=== PATIENT | female | born 1990 | race Caucasian/White ===

== ENCOUNTER 2024-11-25 14:27 | Outpatient (AMB) | payer MEDICAID, SELFPAY ==
[2024-11-25 14:36] VITALS: BP 135/86; PULSE 95; RESP 18; TEMP 36.7; O2SAT 98; BMI 31.3
--- NOTE | 2024-11-25 14:36 | AMB.GYNCLNOT ---
Vital Signs 11/25/24 14:36 Height 1.57 m Height Method Stated Weight 77.621 kg Weight Measurement Method Standing Scale BMI 31.3 BP 135/86 H Blood Pressure Source Automatic Cuff Blood Pressure Location Left Upper Arm Position Sitting Respiration 18 Pulse 95 Pulse Source Monitor Temp 98.1 F Temp Source Temporal Artery Scan Pulse Oximetry (%) 98 Oxygen Delivery Method Room Air Allergies/Home Meds Allergies & Medications Allergies No Known Allergies Allergy (Unverified 11/25/24 14:37) Medication Reconciliation vitamins with calcium no.72-iron 29 mg-folic acid 1 mg tablet ( Plus) 1 tab PO QDAY 90 days #90 tabs 11/25/24 [Rx] Intake Visit Data Collection New Patient or Established: Established Patient (seen at [facility] within 3 years) Reason for Visit:: test Do You Feel Safe at Home: Yes Authorities Contacted: N/A PCP or OBGYN visit in last 3 months: Yes Smoking Status Smoking Status: Never smoker 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 No complaints of UTI. No complaints of vaginitis. Questionnaires Covid-19 Vaccine Questionnaire Has patient been vacinated for Covid-19 Have you been vacinated for Covid-19: Yes PHQ-9 PHQ-2 Over the last 2 weeks, how often have you been bothered by any of the following problems? 1. Little interest or pleasure in doing things: not at all 2. Feeling down, depressed, or hopeless: not at all Total score: 0 Depression screen completed yes Social History Living Situation History Marital Status: Life Partner Lives With: Family Housing: House Tobacco History Smoking Status: Never smoker Alcohol History Alcohol Intake: Never Domestic Abuse History Do You Feel Safe at Home: Yes Past Medical History Past Medical History Have you ever been diagnosed with any of the following: Neurological Problems Seizures: No Cardiology Problems Congestive Heart Failure: No Congenital Heart Disease: No Respiratory Problems Chronic Obstructive Pulmonary Disease (COPD): No Asthma: No Genital/Urinary Problems Renal Disease: No Musculoskeletal Problems Scoliosis: Yes (mild per pt) Endocrine Problems Diabetes Mellitus Type 1: No Diabetes Mellitus Type 2: No Blood Problems Anemia: No Psychologic Problems Depression: No Anxiety: No Depression: No Other Problems Hospitalization: Yes ( x2) Blood Transfusions: No Anesthesia Reactions: No History of Present Illness HPI Narrative This is a 34-year-old 4 para 3 that comes today with complaints of amenorrhea Menses are usually every month x 5 days. Flow is normal. lmp 10/11/24. patient and partner have been activeley trying for a , not using contraception. + test 11/24/24. Patient is very happy about a positive test. She denies any bleeding at this time however she is having some low pelvic cramping. Denies social habits. Denies surgeries. Denies chronic illness. She has history of 3 vaginal deliveries that were normal and uncomplicated. She denies any early complaints. early . EDC 08/12/25 Review of Systems Review of Systems Systems Reviewed: All systems reviewed, normal except as documented Exam General Limitations: no limitations General Appearance: alert, in no apparent distress, comfortable, cooperative, healthy appearing, well developed and well groomed Chest Chest inspection: Present normal inspection and symmetric chest wall rise Resp Respiratory exam: Present normal lung sounds bilaterally Card Cardiovascular exam: Present regular rate, normal rhythm and normal heart sounds Abdominal Abdominal exam: Present soft and normal bowel sounds Psych Psychiatric exam: Present normal affect and normal mood Assessment & Plan Diagnosis / Problem List (1) Encounter for test, result positive: Status: Acute Plan Gave prescription for vitamins. I discussed starting vitamin D and calcium daily. Discussed diet. Walk 40 minutes a day. Increase fluids. Comfort measures for nausea and vomiting. Reviewed SAB and ER precautions. Patient gave order for OB panel. Return in 4 weeks for OB initial. Additional Plan Follow Up: 4 Weeks (rtc 4 week obc) Office Procedures OB Clinic LOC & Office Proc's Nursing/Assessment Patient Status: Established Patient OB Clinic Nursing Assessment: Medication Reconciliation, Update PMH in EMR and Vital Signs OB Clinic Coordination of Care: Complex Care and Chronic Disease 1-5, Consent,records obtained, informed consent, Education Simp Pt/Fam, Lab and Imaging orders and Staff clarify orders Special Needs: Heart tones Established Patient Charge Established Patient Point Assignment: 130 Established Patient Point Charge: EP Level 4 (120-155) In Clinic Bedside tests Bedside HCG: Yes
== END 2024-11-25 14:54 | disposition home or self-care (01) ==
LOC: HODSOBC 14:27
PROVIDERS: Supervising Provider Advanced Practice Midwife; Visit Provider Advanced Practice Midwife
DX: Z32.01 Encounter for pregnancy test, result positive (principal)
CPT/HCPCS: 81025; 99213; 99214; G0463

== ENCOUNTER 2024-12-22 14:26 | Outpatient (AMB) | payer MEDICAID, SELFPAY ==
[2024-12-22 14:49] VITALS: BP 115/76; PULSE 93; RESP 18; TEMP 36.2; O2SAT 97; BMI 32.0
--- NOTE | 2024-12-22 14:49 | AMB.OBVISIT ---
Vital Signs 12/22/24 14:49 Height 1.57 m Height Method Stated Weight 78.925 kg Weight Measurement Method Standing Scale BMI 32.0 BP 115/76 Blood Pressure Source Automatic Cuff Blood Pressure Location Left Upper Arm Position Sitting Respiration 18 Pulse 93 Pulse Source Monitor Temp 97.2 F Temp Source Oral Pulse Oximetry (%) 97 Oxygen Delivery Method Room Air Allergies/Home Meds Allergies & Medications Allergies No Known Allergies Allergy (Verified 12/22/24 14:50) Medication Reconciliation vitamins with calcium no.72-iron 29 mg-folic acid 1 mg tablet ( Plus) 1 tab PO QDAY 90 days #90 tabs 11/25/24 [Rx Confirmed 12/22/24] vitamin-ferrous fumarate 28 mg iron-folic acid 800 mcg tablet ( Vitamins with Minerals) 1 tab PO QDAY 30 days #60 tabs 12/22/24 [Rx] Intake Visit Data Collection New Patient or Established: Established Patient (seen at [facility] within 3 years) Reason for Visit:: obc Seen by Clinical Staff ONLY (RN/MA): No 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 1. Little interest or pleasure in doing things: not at all 2. Feeling down, depressed, or hopeless: not at all Total score: 0 PHQ-9 3. Trouble falling or staying asleep, or sleeping too much: Not at all 4. Feeling tired or having little energy: Not at all 5. Poor appetite or overeating: Not at all 6. Feeling bad about yourself - or that you are a failure or have let yourself or your family down: Not at all 7. Trouble concentrating on things, such as reading the newspaper or watching television: Not at all 8. Moving or speaking so slowly that other people could have noticed? - Or the opposite - being so fidgety or restless that you have been moving around a lot more than usual: not at all 9. Thoughts that you would be better off or of hurting yourself in some way: Not at all Total score: 0 If you checked off any problems, how difficult have these problems made it for you to do your work, take care of things at home, or get along with other people?: not difficult at all Source: Developed by Drs. Toño Loyd, Maria Antonia Rea, Perez Vázquez and colleagues, with an educational evens from [employer]. 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 no SAB complaints. compliance with PNV, OB panel drawn, results pending. change PNV to another brand, insurance not covering. schedule NT sacn. NIPT nv, + FHT on sono BRITT Calculator Estimated Delivery Date Method Current WG Current Estimate 08/07/25 LMP (Certain) 7w 3d Office Procedures OB Clinic LOC & Office Proc's Nursing/Assessment Patient Status: Established Patient OB Clinic Nursing Assessment: Medication Reconciliation, Update PMH in EMR and Vital Signs OB Clinic Coordination of Care: Consent,records obtained, informed consent, Education Simp Pt/Fam, Lab and Imaging orders and Staff clarify orders Special Needs: Heart tones Established Patient Charge Established Patient Point Assignment: 105 Established Patient Point Charge: EP Level 3 (80-115) Assessment & Plan Diagnosis / Problem List (1) Advanced maternal age (AMA) in : Status: Acute (2) Encounter for supervision of normal in multigravida in first trimester: Status: Acute Plan sab precaution, labs pending, change brand of PNV, schedule NT scan. discuss diet and weight, RTC 4 week, NIPT NV Additional Plan Follow Up: 4 Weeks (obc)
== END 2024-12-22 15:42 | disposition home or self-care (01) ==
LOC: HODSOBC 14:26
PROVIDERS: PCP Advanced Practice Midwife; Referring Provider Advanced Practice Midwife; Supervising Provider Advanced Practice Midwife; Visit Provider Advanced Practice Midwife
DX: O09.521 Supervision of elderly multigravida, first trimester (principal); Z3A.01 Less than 8 weeks gestation of pregnancy
CPT/HCPCS: 81001; 99213; G0463

== ENCOUNTER 2025-01-13 15:30 | Outpatient (AMB) | payer MEDICAID, SELFPAY ==
[2025-01-13 16:01] VITALS: BP 121/77; PULSE 92; RESP 18; TEMP 36.2; O2SAT 98; BMI 32.2
--- NOTE | 2025-01-13 16:01 | OBCLNT_ITS ---
Vital Signs 01/13/25 16:01 Height 1.57 m Height Method Stated Weight 79.492 kg Weight Measurement Method Standing Scale BMI 32.2 BP 121/77 Blood Pressure Source Automatic Cuff Blood Pressure Location Left Upper Arm Position Sitting Respiration 18 Pulse 92 Pulse Source Monitor Temp 97.2 F Temp Source Oral Pulse Oximetry (%) 98 Oxygen Delivery Method Room Air Allergies/Home Meds Allergies & Medications Allergies No Known Allergies Allergy (Verified 01/13/25 16:02) Medication Reconciliation vitamins with calcium no.72-iron 29 mg-folic acid 1 mg tablet ( Plus) 1 tab PO QDAY 90 days #90 tabs 11/25/24 [Rx Confirmed 01/13/25] vitamin-ferrous fumarate 28 mg iron-folic acid 800 mcg tablet ( Vitamins with Minerals) 1 tab PO QDAY 30 days #60 tabs 12/22/24 [Rx Confirmed 01/13/25] Intake Visit Data Collection New Patient or Established: Established Patient (seen at [facility] within 3 years) Reason for Visit:: OBC Cray Fishing Hand Required: No Do You Feel Safe at Home: Yes Authorities Contacted: N/A PCP or OBGYN visit in last 3 months: Yes Hx Now: Yes Are you currently on any form of Control: No Pain Present Currently: No Pain Scale Used: Fishman-Naidu/Numerical Pain scale:: 0 Smoking Status Smoking Status: Never smoker Questionnaires Covid-19 Vaccine Questionnaire Has patient been vacinated for Covid-19 Have you been vacinated for Covid-19: Yes PHQ-9 PHQ-2 Over the last 2 weeks, how often have you been bothered by any of the following problems? 1. Little interest or pleasure in doing things: not at all 2. Feeling down, depressed, or hopeless: not at all Total score: 0 PHQ-9 3. Trouble falling or staying asleep, or sleeping too much: Not at all 4. Feeling tired or having little energy: Not at all 5. Poor appetite or overeating: Not at all 6. Feeling bad about yourself - or that you are a failure or have let yourself or your family down: Not at all 7. Trouble concentrating on things, such as reading the newspaper or watching television: Not at all 8. Moving or speaking so slowly that other people could have noticed? - Or the opposite - being so fidgety or restless that you have been moving around a lot more than usual: not at all 9. Thoughts that you would be better off or of hurting yourself in some way: Not at all Total score: 0 If you checked off any problems, how difficult have these problems made it for you to do your work, take care of things at home, or get along with other people?: not difficult at all Source: Developed by Drs. Toño Loyd, Maria Antonia Rea, Perez Vázquez and colleagues, with an educational evens from [employer]. 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 no SAB complaints. compliance with PNV, OB panel drawn, results pending. change PNV to another brand, insurance not covering. schedule NT sacn. NIPT nv, + FHT on sono 01/13/25 -?-?-?-?-?-?-?-?-?-?-?-?- 10w 4d 79.492 kg 121/77 absent unknown 12 145 absent no ob complaints. no sab complaints, mfm sched 02/03. contin PNV NIPT/carrier screen, . keep mfm appointment 02/03/25. sab precaution. hydrate. rtc 4 week BRITT Calculator Estimated Delivery Date Method Current WG Current Estimate 08/07/25 LMP (Certain) 10w 4d Notes Visit Date: 01/13/25 Last Updated by: Veda Quigley, YULISSA 34 yo lmp 10/31/24. EDC 08/07/25. O+,abs-, RPR::NR, rub imm, hbsag-,hiv-, GC/CT-, Office Procedures OB Clinic LOC & Office Proc's Nursing/Assessment Patient Status: Established Patient OB Clinic Nursing Assessment: Medication Reconciliation, Update PMH in EMR and Vital Signs OB Clinic Coordination of Care: Education Complex Pt/Fam, Consent,records obtained, informed consent, Lab and Imaging orders and Staff clarify orders Special Needs: Heart tones Established Patient Charge Established Patient Point Assignment: 110 Established Patient Point Charge: EP Level 3 (80-115) Assessment & Plan Diagnosis / Problem List (1) Advanced maternal age (AMA) in : Status: Acute (2) Encounter for supervision of normal in multigravida in first trimester: Status: Acute Plan keep mfm appointment for 02/03. continue PNV, sab precaution. NIPT and carrier screen today. rtc 4 wk obc Additional Plan Follow Up: 4 Weeks (obc)
== END 2025-01-13 16:44 | disposition home or self-care (01) ==
LOC: HODSOBC 15:30
PROVIDERS: PCP Advanced Practice Midwife; Referring Provider Advanced Practice Midwife; Supervising Provider Advanced Practice Midwife; Visit Provider Advanced Practice Midwife
DX: O09.521 Supervision of elderly multigravida, first trimester (principal); Z3A.10 10 weeks gestation of pregnancy
CPT/HCPCS: 99213; G0463

== ENCOUNTER 2025-03-01 13:13 | Outpatient (AMB) | payer MEDICAID, SELFPAY ==
[2025-03-01 13:18] VITALS: BP 117/70; PULSE 96; RESP 17; TEMP 36.7; O2SAT 98; BMI 33.2
--- NOTE | 2025-03-01 13:18 | OBCLNT_ITS ---
Vital Signs 03/01/25 13:18 Height 1.57 m Height Method Stated Weight 81.817 kg Weight Measurement Method Standing Scale BMI 33.2 BP 117/70 Blood Pressure Source Automatic Cuff Blood Pressure Location Right Upper Arm Position Sitting Respiration 17 Pulse 96 Pulse Source Monitor Temp 98.1 F Temp Source Temporal Artery Scan Pulse Oximetry (%) 98 Oxygen Delivery Method Room Air Allergies/Home Meds Allergies & Medications Allergies No Known Allergies Allergy (Verified 03/01/25 13:20) Medication Reconciliation vitamins with calcium no.72-iron 29 mg-folic acid 1 mg tablet ( Plus) 1 tab PO QDAY 90 days #90 tabs 11/25/24 [Rx Confirmed 03/01/25] vitamin-ferrous fumarate 28 mg iron-folic acid 800 mcg tablet ( Vitamins with Minerals) 1 tab PO QDAY 30 days #60 tabs 12/22/24 [Rx Confirmed 03/01/25] Intake Visit Data Collection New Patient or Established: Established Patient (seen at [facility] within 3 years) Reason for Visit:: OBC Seen by Clinical Staff ONLY (RN/MA): No Night Clerk Auditor Required: No Do You Feel Safe at Home: Yes Authorities Contacted: N/A PCP or OBGYN visit in last 3 months: Yes Date of Last PCP or OBGYN visit: 01/13/25 Hx Now: Yes Are you currently on any form of Control: No Pain Present Currently: No Pain Scale Used: Fishman-Naidu/Numerical Pain scale:: 0 Smoking Status Smoking Status: Never smoker Questionnaires Covid-19 Vaccine Questionnaire Has patient been vacinated for Covid-19 Have you been vacinated for Covid-19: No PHQ-9 PHQ-2 Over the last 2 weeks, how often have you been bothered by any of the following problems? 1. Little interest or pleasure in doing things: not at all 2. Feeling down, depressed, or hopeless: not at all Total score: 0 PHQ-9 3. Trouble falling or staying asleep, or sleeping too much: Not at all 4. Feeling tired or having little energy: Not at all 5. Poor appetite or overeating: Not at all 6. Feeling bad about yourself - or that you are a failure or have let yourself or your family down: Not at all 7. Trouble concentrating on things, such as reading the newspaper or watching television: Not at all 8. Moving or speaking so slowly that other people could have noticed? - Or the opposite - being so fidgety or restless that you have been moving around a lot more than usual: not at all 9. Thoughts that you would be better off or of hurting yourself in some way: Not at all Total score: 0 If you checked off any problems, how difficult have these problems made it for you to do your work, take care of things at home, or get along with other people?: not difficult at all Source: Developed by Drs. Toño Loyd, Maria Antonia Rea, Perez Vázquez and colleagues, with an educational evens from [employer]. 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 no SAB complaints. compliance with PNV, OB panel drawn, results pending. change PNV to another brand, insurance not covering. schedule NT sacn. NIPT nv, + FHT on sono 01/13/25 -?-?-?-?-?-?-?-?-?-?-?-?- 10w 4d 79.492 kg 121/77 absent unknown 12 145 absent no ob complaints. no sab complaints, mfm sched 02/03. contin PNV NIPT/carrier screen, . keep mfm appointment 02/03/25. sab precaution. hydrate. rtc 4 week 03/01/25 -?-?-?--?-?-?-?-?-?-?-?-?- 17w 2d 81.817 kg 117/70 absent unknown 17 145 decreased No SAB complaints. Reports movement. Denies leaking or bleeding. Patient has a follow-up maternal- medicine appointment for March. No SAB complaints. Reports movement. Denies leaking or bleeding. Patient has a follow-up maternal- medicine appointment for March. MFM 03/01 Keep appointment in March for follow-up MFM. aFP today. Discussed labor and SAB precautions. Increase fluids. Continue prenatals return in 4 weeks OB check BRITT Calculator Estimated Delivery Date Method Current WG Current Estimate 08/07/25 LMP (Certain) 17w 2d Notes Visit Date: 03/01/25 Last Updated by: Veda Quigley CNM NIPT- Visit Date: 01/13/25 Last Updated by: Veda Quigley CNM 34 yo lmp 10/31/24. EDC 08/07/25. O+,abs-, RPR::NR, rub imm, hbsag-,hiv-, GC/CT-, Office Procedures OB Clinic LOC & Office Proc's Nursing/Assessment Patient Status: Established Patient OB Clinic Nursing Assessment: Medication Reconciliation, Update PMH in EMR and Vital Signs OB Clinic Coordination of Care: Complex Care and Chronic Disease 1-5, Consent,records obtained, informed consent, Education Simp Pt/Fam and Staff clarify orders Special Needs: Heart tones Established Patient Charge Established Patient Point Assignment: 115 Established Patient Point Charge: EP Level 3 (80-115) Assessment & Plan Diagnosis / Problem List (1) Normal in multigravida in second trimester: Status: Acute (2) Advanced maternal age (AMA) in : Status: Acute Plan aFP today. Discussed SAB precautions. Increase fluids. Continue prenatals. Patient has a follow-up MFM in March. Additional Plan Follow Up: 4 Weeks (obc)
== END 2025-03-01 13:53 | disposition home or self-care (01) ==
LOC: HODSOBC 13:13
PROVIDERS: PCP Advanced Practice Midwife; Referring Provider Advanced Practice Midwife; Supervising Provider Advanced Practice Midwife; Visit Provider Advanced Practice Midwife
DX: O09.522 Supervision of elderly multigravida, second trimester (principal); Z3A.17 17 weeks gestation of pregnancy
CPT/HCPCS: 99213; G0463

== ENCOUNTER 2025-03-29 15:44 | Outpatient (AMB) | payer MEDICAID, SELFPAY ==
--- NOTE | 2025-03-29 16:07 | OBCLNT_ITS ---
Vital Signs 03/29/25 16:08 Height 1.57 m Height Method Measured Weight 83.971 kg Weight Measurement Method Standing Scale BMI 34.0 BP 116/73 Blood Pressure Source Automatic Cuff Blood Pressure Location Right Upper Arm Position Sitting Respiration 17 Pulse 85 Pulse Source Monitor Temp 97.1 F Temp Source Temporal Artery Scan Pulse Oximetry (%) 98 Oxygen Delivery Method Room Air Allergies/Home Meds Allergies & Medications Allergies No Known Allergies Allergy (Verified 03/29/25 16:08) Medication Reconciliation vitamins with calcium no.72-iron 29 mg-folic acid 1 mg tablet ( Plus) 1 tab PO QDAY 90 days #90 tabs 11/25/24 [Rx Confirmed 03/29/25] vitamin-ferrous fumarate 28 mg iron-folic acid 800 mcg tablet ( Vitamins with Minerals) 1 tab PO QDAY 30 days #60 tabs 12/22/24 [Rx Confirmed 03/29/25] aspirin 81 mg tablet,delayed release (Adult Aspirin Regimen) 81 mg PO QDAY #60 tabs 03/29/25 [Rx] Intake Visit Data Collection New Patient or Established: Established Patient (seen at [facility] within 3 years) Reason for Visit:: C Consent obtained for Telemed Visit: No Seen by Clinical Staff ONLY (RN/MA): No Bathhouse Attendant Required: No Do You Feel Safe at Home: Yes Authorities Contacted: N/A PCP or OBGYN visit in last 3 months: Yes Date of Last PCP or OBGYN visit: 03/01/25 Hx Now: Yes Are you currently on any form of Control: No Pain Present Currently: No Pain Scale Used: Fishman-Naidu/Numerical Pain scale:: 0 Smoking Status Smoking Status: Never smoker Questionnaires Covid-19 Vaccine Questionnaire Has patient been vacinated for Covid-19 Have you been vacinated for Covid-19: No PHQ-9 PHQ-2 Over the last 2 weeks, how often have you been bothered by any of the following problems? 1. Little interest or pleasure in doing things: not at all PHQ-9 8. Moving or speaking so slowly that other people could have noticed? - Or the opposite - being so fidgety or restless that you have been moving around a lot more than usual: not at all Source: Developed by Drs. Toño Loyd, Maria Antonia Rea, Perez Vázquez and colleagues, with an educational evens from [employer]. 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 no SAB complaints. c ompliance with PNV, OB panel drawn, results pending. change PNV to another brand, insurance not covering. schedule NT sacn. NIPT nv, + FHT on sono 01/13/25 -?-?-?-?-?-?-?-?-?-?-?-?- 10w 4d 79.492 kg 121/77 absent unknown 12 145 absent no ob complaints. no sab complaints, [facility] sched 02/03. contin PNV NIPT/carrier screen, . keep m appoi ntment 02/03/25. sab precaution. hydrate. rtc 4 week 03/01/25 -?-?-?-?-?-?-?-?-?-?-?-?- 17w 2d 81.817 kg 117/70 absent unknown 17 145 decreased No SAB complaints. Reports movement. Denies leaking or bleeding. Patient has a follow-up maternal- medicine appointment for March. No SAB complaints. Reports movement. Denies leaking or bleeding. Patient has a follow-up maternal- medicine appointment for March. MFM 03/01 Keep appointment in March for follow-up MFM. aFP today. Discussed labor and SAB precautions. Increase fluids. Continue prenatals return in 4 weeks OB check 03/29/25 -?-?-?-?-?-?-?-?-?-?-?-?- 21w 2d 83.971 kg 116/73 absent unknown 21 145 active No SAB complaints. Positive movement. MFM appointment March 31. Denies leaking, bleeding, contractions. Complains of ligament pain Start low-dose baby aspirin 1 daily. Keep appointment March 31 with MFM. Discussed labor precautions. Increase fluids. Continue prenatals. Return in 4 weeks OB check. Comfort measures for ligament pain BRITT Calculator Estimated Delivery Date Method Current WG Current Estimate 08/07/25 LMP (Certain) 21w 2d Other Estimates 08/07/25 Ultrasound #1 21w 2d Notes Visit Date: 03/29/25 Last Updated by: Veda Quigley CNM 34 yo . LMP 10/31/24, edc: 08/07/25. O+,abs-, rpr;;nr, rub imm, hbsag- , hiv-,HC-, GC/CT-. AFP/NIPT -, carrier screen- Visit Date: 03/01/25 Last Updated by: Veda Quigley CNM NIPT- Visit Date: 01/13/25 Last Updated by: Veda Quigley CNM 34 yo lmp 10/31/24. EDC 08/07/25. O+,abs-, RPR::NR, rub imm, hbsag-,hiv-, GC/CT-, / Office Procedures OB Clinic LOC & Office Proc's Nursing/Assessment Patient Status: Established Patient OB Clinic Nursing Assessment: Medication Reconciliation, Update PMH in EMR and Vital Signs OB Clinic Coordination of Care: Complex Care and Chronic Disease 1-5, Consent,records obtained, informed consent, Education Simp Pt/Fam, 4+ Authorizations needed, Lab and Imaging orders and Results/Orders obtained Special Needs: Heart tones Established Patient Charge Established Patient Point Assignment: 150 Established Patient Point Charge: EP Level 4 (120-155) Assessment & Plan Diagnosis / Problem List (1) Normal in multigravida in second trimester: Status: Acute (2) Advanced maternal age (AMA) in : Status: Acute Plan Discussed negative AFP. labor precautions reviewed. Increase fluids. Keep MFM appointment on the . Turn in 4 weeks for OB check and third trimester labs Additional Plan Follow Up: 4 Weeks (obc)
[2025-03-29 16:08] VITALS: BP 116/73; PULSE 85; RESP 17; TEMP 36.2; O2SAT 98; BMI 34.0
== END 2025-03-29 16:21 | disposition home or self-care (01) ==
LOC: HODSOBC 15:44
PROVIDERS: Supervising Provider Advanced Practice Midwife; Visit Provider Advanced Practice Midwife
DX: O09.522 Supervision of elderly multigravida, second trimester (principal); Z3A.21 21 weeks gestation of pregnancy
CPT/HCPCS: 99214; G0463

== ENCOUNTER 2025-04-26 15:12 | Outpatient (AMB) | payer MEDICAID, SELFPAY ==
[2025-04-26 15:59] VITALS: BP 106/72; PULSE 99; RESP 16; TEMP 36.2; O2SAT 98; BMI 35.0
--- NOTE | 2025-04-26 15:59 | OBCLNT_ITS ---
Vital Signs 04/26/25 15:59 Height 1.57 m Height Method Stated Weight 86.409 kg Weight Measurement Method Standing Scale BMI 35.0 BP 106/72 Blood Pressure Source Automatic Cuff Blood Pressure Location Left Upper Arm Position Sitting Respiration 16 Pulse 99 Pulse Source Monitor Temp 97.2 F Temp Source Oral Pulse Oximetry (%) 98 Oxygen Delivery Method Room Air Allergies/Home Meds Allergies & Medications Allergies No Known Allergies Allergy (Verified 04/26/25 16:00) Medication Reconciliation vitamins with calcium no.72-iron 29 mg-folic acid 1 mg tablet ( Plus) 1 tab PO QDAY 90 days #90 tabs 11/25/24 [Rx Confirmed 04/26/25] vitamin-ferrous fumarate 28 mg iron-folic acid 800 mcg tablet ( Vitamins with Minerals) 1 tab PO QDAY 30 days #60 tabs 12/22/24 [Rx Confirmed 04/26/25] aspirin 81 mg tablet,delayed release (Adult Aspirin Regimen) 81 mg PO QDAY #60 tabs 03/29/25 [Rx Confirmed 04/26/25] Intake Visit Data Collection New Patient or Established: Established Patient (seen at [facility] within 3 years) Reason for Visit:: OBC Seen by Clinical Staff ONLY (RN/MA): No Insurance Salesperson Required: No Do You Feel Safe at Home: Yes Authorities Contacted: N/A PCP or OBGYN visit in last 3 months: Yes Date of Last PCP or OBGYN visit: 03/29/25 Hx Now: Yes Are you currently on any form of Control: No Pain Present Currently: No Pain Scale Used: Fishman-Naidu/Numerical Pain scale:: 0 Smoking Status Smoking Status: Never smoker Questionnaires Covid-19 Vaccine Questionnaire Has patient been vacinated for Covid-19 Have you been vacinated for Covid-19: Yes PHQ-9 PHQ-2 Over the last 2 weeks, how often have you been bothered by any of the following problems? 1. Little interest or pleasure in doing things: not at all 2. Feeling down, depressed, or hopeless: not at all Total score: 0 PHQ-9 3. Trouble falling or staying asleep, or sleeping too much: Not at all 4. Feeling tired or having little energy: Not at all 5. Poor appetite or overeating: Not at all 8. Moving or speaking so slowly that other people could have noticed? - Or the opposite - being so fidgety or restless that you have been moving around a lot more than usual: not at all Source: Developed by Drs. Toño Loyd, Maria Antonia Rea, Perez Vázquez and colleagues, with an educational evens from [employer]. 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 no SAB complaints. compliance with PNV, OB panel drawn, results pending. change PNV to another brand, insurance not covering. schedule NT sacn. NIPT nv, + FHT on sono 01/13/25 -?-?-?-?-?-?-?-?-?-?-?-?- 10w 4d 79.492 kg 121/77 absent unknown 12 145 absent no ob complaints. no sab complaints, mfm sched 02/03. contin PNV NIPT/carrier screen, . keep mfm appointment 02/03/25. sab precaution. hydrate. rtc 4 week 03/01/25 -?-?-?-?-?-?-?-?-?-?-?-?- 17w 2d 81.817 kg 117/70 absent unknown 17 145 decreased No SAB complaints. Reports movement. Denies leaking or bleeding. Patient has a follow-up maternal- medicine appointment for March. No SAB complaints. Reports movement. Denies leaking or bleeding. Patient has a follow-up maternal- medicine appointment for March. MFM 03/01 Keep appointment in March for follow-up MFM. aFP today. Discussed labor and SAB precautions. Increase fluids. Continue prenatals return in 4 weeks OB check 03/29/25 -?-?-?-?-?-?-?-?-?-?-?-?- w 2d 83.971 kg 116/73 absent unknown 21 145 active No SAB complaints. Positive movement. MFM appointment March 31. Denies leaking, bleeding, contractions. Complains of ligament pain Start low-dose baby aspirin 1 daily. Keep appointment March 31 with MFM. Discussed labor precautions. Increase fluids. Continue prenatals. Return in 4 weeks OB check. Comfort measures for ligament pain 04/26/25 -?-?-?-?-?-?-?-?-?-?-?-?- w 2d 86.409 kg 106/72 absent unknown 25 140 active Reports good movement. Denies leaking, denies bleeding, denies contractions. Continue low- dose baby aspirin and vitamin. Follow-up maternal- medicine sono is June 30. I gave patient lab slip for third trimester labs. Discussed diet and weight gain. labor precautions. Return in 4 4 weeks OB check BRITT Calculator Estimated Delivery Date Method Current WG Current Estimate 08/07/25 Manual 25w 2d final BRITT: 08/07/25 Other Estimates 08/07/25 LMP (Certain) 25w 2d 08/07/25 Ultrasound #1 25w 2d Notes Visit Date: 03/29/25 Last Updated by: Veda Quigley CNM 34 yo . LMP 10/31/24, edc: 08/07/25. O+,abs-, rpr;;nr, rub imm, hbsag- , hiv-,HC-, GC/CT-. AFP/NIPT -, carrier screen- Visit Date: 03/01/25 Last Updated by: Veda Quigley CNM NIPT- Visit Date: 01/13/25 Last Updated by: Veda Quigley CNM 34 yo lmp 10/31/24. EDC 08/07/25. O+,abs-, RPR::NR, rub imm, hbsag-,hiv-, GC/CT-, Office Procedures OB Clinic LOC & Office Proc's Nursing/Assessment Patient Status: Established Patient OB Clinic Nursing Assessment: Medication Reconciliation, Update PMH in EMR and Vital Signs OB Clinic Coordination of Care: Education Complex Pt/Fam, Consent,records obtained, informed consent, Lab and Imaging orders, Results/Orders obtained and Staff clarify orders Special Needs: Heart tones Established Patient Charge Established Patient Point Assignment: 115 Established Patient Point Charge: EP Level 3 (80-115) Assessment & Plan Diagnosis / Problem List (1) Advanced maternal age (AMA) in : Status: Acute (2) Normal in multigravida in second trimester: Status: Acute Plan Third trimester labs. Continue prenatals. Discussed diet and weight. Walk 40 minutes a day. Follow-up maternal- medicine sono June 30. Discussed labor precautions. Return in 4 weeks OB check Additional Plan Follow Up: 4 Weeks (obc)
== END 2025-04-26 16:04 | disposition home or self-care (01) ==
LOC: HODSOBC 15:12
PROVIDERS: Supervising Provider Advanced Practice Midwife; Visit Provider Advanced Practice Midwife
DX: O09.522 Supervision of elderly multigravida, second trimester (principal); Z3A.25 25 weeks gestation of pregnancy; Z79.82 Long term (current) use of aspirin
CPT/HCPCS: 99213; G0463

== ENCOUNTER 2025-05-13 08:25 | Outpatient (AMB) | payer MEDICAID, SELFPAY ==
[2025-05-13 08:36] VITALS: BP 128/68; PULSE 97; RESP 17; TEMP 36.4; O2SAT 97; BMI 34.4
--- NOTE | 2025-05-13 08:36 | OBCLNT_ITS ---
Vital Signs 05/13/25 08:36 Height 1.57 m Height Method Stated Weight 85.049 kg Weight Measurement Method Standing Scale BMI 34.4 BP 128/68 Blood Pressure Source Automatic Cuff Blood Pressure Location Right Upper Arm Position Sitting Respiration 17 Pulse 97 Pulse Source Monitor Temp 97.6 F Temp Source Temporal Artery Scan Pulse Oximetry (%) 97 Oxygen Delivery Method Room Air Allergies/Home Meds Allergies & Medications Allergies No Known Allergies Allergy (Verified 05/13/25 08:37) Medication Reconciliation vitamins with calcium no.72-iron 29 mg-folic acid 1 mg tablet ( Plus) 1 tab PO QDAY 90 days #90 tabs 11/25/24 [Rx Confirmed 05/13/25] vitamin-ferrous fumarate 28 mg iron-folic acid 800 mcg tablet ( Vitamins with Minerals) 1 tab PO QDAY 30 days #60 tabs 12/22/24 [Rx Confirmed 05/13/25] aspirin 81 mg tablet,delayed release (Adult Aspirin Regimen) 81 mg PO QDAY #60 tabs 03/29/25 [Rx Confirmed 05/13/25] clotrimazole 2 % vaginal cream (Gyne-Lotrimin) 1 appful vaginal QHS 7 days #21 grams 05/13/25 [Rx] fluconazole 150 mg tablet 150 mg PO QDAY 3 days #3 tabs 05/13/25 [Rx] metronidazole 500 mg tablet 500 mg PO BID 7 days #14 tabs 05/13/25 [Rx] Intake Visit Data Collection New Patient or Established: Established Patient (seen at [facility] within 3 years) Reason for Visit:: C REDNESS/ITCHY Seen by Clinical Staff ONLY (RN/MA): No Dumper Bailer Operator Required: No Do You Feel Safe at Home: Yes Authorities Contacted: N/A PCP or OBGYN visit in last 3 months: Yes Date of Last PCP or OBGYN visit: 04/26/25 Hx Now: Yes Are you currently on any form of Control: No Pain Present Currently: No Pain Scale Used: Fishman-Naidu/Numerical Pain scale:: 0 Smoking Status Smoking Status: Never smoker Questionnaires Covid-19 Vaccine Questionnaire Has patient been vacinated for Covid-19 Have you been vacinated for Covid-19: No PHQ-9 PHQ-2 Over the last 2 weeks, how often have you been bothered by any of the following problems? 1. Little interest or pleasure in doing things: not at all 2. Feeling down, depressed, or hopeless: not at all Total score: 0 PHQ-9 3. Trouble falling or staying asleep, or sleeping too much: Not at all 4. Feeling tired or having little energy: Not at all 5. Poor appetite or overeating: Not at all 6. Feeling bad about yourself - or that you are a failure or have let yourself or your family down: Not at all 7. Trouble concentrating on things, such as reading the newspaper or watching television: Not at all 8. Moving or speaking so slowly that other people could have noticed? - Or the opposite - being so fidgety or restless that you have been moving around a lot more than usual: not at all 9. Thoughts that you would be better off or of hurting yourself in some way: Not at all Total score: 0 If you checked off any problems, how difficult have these problems made it for you to do your work, take care of things at home, or get along with other people?: not difficult at all Source: Developed by Drs. Toño Loyd, Maria Antonia Rea, Perez Vázquez and colleagues, with an educational evens from [id number]. 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 no SAB complaints. compliance with PNV, OB panel drawn, results pending. change PNV to another brand, insurance not covering. schedule NT sacn. NIPT nv, + FHT on sono 01/13/25 -?-?-?-?-?-?-?-?-?-?-?-?- 10w 4d 79.492 kg 121/77 absent unknown 12 145 absent no ob complaints. no sab complaints, m sched 02/03. contin PNV NIPT/carrier screen, . keep [facility] appointment 02/03/25. sab precaution. hydrate. rtc 4 week 03/01/25 -?-?-?-?-?-?-?-?-?-?-?-?- 17w 2d 81.817 kg 117/70 absent unknown 17 145 decreased No SAB complaints. Reports movement. Denies leaking or bleeding. Patient has a follow-up maternal- medicine appointment for March. No SAB complaints. Reports movement. Denies leaking or bleeding. Patient has a follow-up maternal- medicine appointment for March. [facility] 03/01 Keep appointment in March for follow-up MFM. aFP today. Discussed labor and SAB precautions. Increase fluids. Continue prenatals return in 4 weeks OB check 03/29/25 -?-?-?-?-?-?-?--?-?-?-?-?- w 2d 83.971 kg 116/73 absent unknown 21 145 active No SAB complaints. Positive movement. [facility] appointment March 31. Denies leaking, bleeding, contractions. Complains of ligament pain Start low-dose baby aspirin 1 daily. Keep appointment March 31 with [facility]. Discussed labor precautions. Increase fluids. Continue prenatals. Return in 4 weeks OB check. Comfort measures for ligament pain 04/26/25 -?-?-?-?-?-?-?-?-?-?-?-?- w 2d 86.409 kg 106/72 absent unknown 25 140 active Reports good movement. Denies leaking, denies bleeding, denies contractions. Continue low- dose baby aspirin and vitamin. Follow-up maternal- medicine sono is June 30. I gave patient lab slip for third trimester labs. Discussed diet and weight gain. labor precautions. Return in 4 4 weeks OB check 05/13/25 -?-?-?-?-?-?-?-?-?-?-?-?- 27w 5d 85.049 kg 128/68 absent unknown 28 145 active + FM, denies leaking,bleeding,UC. c/o vag irritation and discharge. + whiff. Heavy christianson discharge, vagina red comfort me asure for vaginitis. nuswab plus, Diflucan 150 x3, flagyl 500 bid x7, gynelotrimin x 7. 3 hr gtt. [facility] 07/06. discuss diet and weight. keep sched appointment BRITT Calculator Estimated Delivery Date Method Current WG Current Estimate 08/07/25 LMP (Certain) 27w 5d Other Estimates 08/07/25 Ultrasound #1 27w 5d 08/07/25 Ultrasound #2 27w 5d 08/07/25 Manual 27w 5d final BRITT: 07/13 03/05 Notes Visit Date: 05/13/25 Last Updated by: Veda Quigley CNM 05/13: 1 hr gtt: 142, ,a1: 5.1, RPR::NR Visit Date: 03/29/25 Last Updated by: Veda Quigley CNM 34 yo . LMP 10/31/24, edc: 08/07/25. O+,abs-, rpr;;nr, rub imm, hbsag- , hiv-,HC-, GC/CT-. AFP/NIPT -, carrier screen- Visit Date: 03/01/25 Last Updated by: Veda Quigley CNM NIPT- Visit Date: 01/13/25 Last Updated by: Veda Quigley CNM 34 yo lmp 10/31/24. EDC 08/07/25. O+,abs-, RPR::NR, rub imm, hbsag-,hiv-, GC/CT-, / Office Procedures OBC Clinic LOC & Office Proc's Nursing/Assessment Patient Status: Established Patient OB Clinic Nursing Assessment: Medication Reconciliation, Update PMH in EMR and Vital Signs OB Clinic Coordination of Care: Complex Care and Chronic Disease 1-5, Education Complex Pt/Fam, Consent,records obtained, informed consent, Lab and Imaging orders, Results/Orders obtained and Staff clarify orders Special Needs: Heart tones Established Patient Charge Established Patient Point Assignment: 140 Established Patient Point Charge: EP Level 4 (120-155) Assessment & Plan Diagnosis / Problem List (1) Vaginitis: Status: Acute (2) Normal in multigravida in second trimester: Status: Acute Plan comfort measure for vaginitis, Flagyl 500 bid x7, diflucan 150 x3, gynelotrimin x 7. nuswab plus. [facility] in . discuss ptl precaution. continue PNV. 3 hr gtt, discuss diet and weight Additional Plan Follow Up: 3 Weeks (obc)
== END 2025-05-13 09:12 | disposition home or self-care (01) ==
LOC: HODSOBC 08:25
PROVIDERS: Supervising Provider Advanced Practice Midwife; Visit Provider Advanced Practice Midwife
DX: O09.892 Supervision of other high risk pregnancies, second trimester (principal); O23.592 Infection of other part of genital tract in pregnancy, second trimester; O09.522 Supervision of elderly multigravida, second trimester; N76.0 Acute vaginitis; Z3A.27 27 weeks gestation of pregnancy
CPT/HCPCS: 99214; G0463

== ENCOUNTER 2025-05-24 08:59 | Outpatient (AMB) | payer MEDICAID, SELFPAY ==
[2025-05-24 09:12] VITALS: BP 104/70; PULSE 85; RESP 17; TEMP 36.6; O2SAT 98; BMI 34.6
--- NOTE | 2025-05-24 09:12 | AMB.OBVISIT ---
Vital Signs 05/24/25 09:12 Height 1.57 m Height Method Stated Weight 85.332 kg Weight Measurement Method Standing Scale BMI 34.6 BP 104/70 Blood Pressure Source Automatic Cuff Blood Pressure Location Right Upper Arm Position Sitting Respiration 17 Pulse 85 Pulse Source Monitor Temp 97.8 F Temp Source Temporal Artery Scan Pulse Oximetry (%) 98 Oxygen Delivery Method Room Air Allergies/Home Meds Allergies & Medications Allergies No Known Allergies Allergy (Verified 05/24/25 09:13) Medication Reconciliation vitamins with calcium no.72-iron 29 mg-folic acid 1 mg tablet ( Plus) 1 tab PO QDAY 90 days #90 tabs 11/25/24 [Rx Confirmed 05/24/25] vitamin-ferrous fumarate 28 mg iron-folic acid 800 mcg tablet ( Vitamins with Minerals) 1 tab PO QDAY 30 days #60 tabs 12/22/24 [Rx Confirmed 05/24/25] aspirin 81 mg tablet,delayed release (Adult Aspirin Regimen) 81 mg PO QDAY #60 tabs 03/29/25 [Rx Confirmed 05/24/25] clotrimazole 2 % vaginal cream (Gyne-Lotrimin) 1 appful vaginal QHS 7 days #21 grams 05/13/25 [Rx Confirmed 05/24/25] blood sugar diagnostic (Blood Glucose Test strips) #10 ea 05/18/25 [Rx Confirmed 05/24/25] blood sugar diagnostic (Blood Glucose Test strips) #50 ea 05/18/25 [Rx Confirmed 05/24/25] blood-glucose meter #1 ea 05/18/25 [Rx Confirmed 05/24/25] blood-glucose meter #1 ea 05/18/25 [Rx Confirmed 05/24/25] lancets #100 ea 05/18/25 [Rx Confirmed 05/24/25] lancets #100 ea 05/18/25 [Rx Confirmed 05/24/25] Intake Visit Data Collection New Patient or Established: Established Patient (seen at [facility] within 3 years) Reason for Visit:: OBC Seen by Clinical Staff ONLY (RN/MA): No 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 1. Little interest or pleasure in doing things: not at all 2. Feeling down, depressed, or hopeless: not at all Total score: 0 PHQ-9 3. Trouble falling or staying asleep, or sleeping too much: Not at all 4. Feeling tired or having little energy: Not at all 5. Poor appetite or overeating: Not at all 6. Feeling bad about yourself - or that you are a failure or have let yourself or your family down: Not at all 7. Trouble concentrating on things, such as reading the newspaper or watching television: Not at all 8. Moving or speaking so slowly that other people could have noticed? - Or the opposite - being so fidgety or restless that you have been moving around a lot more than usual: not at all 9. Thoughts that you would be better off or of hurting yourself in some way: Not at all Total score: 0 If you checked off any problems, how difficult have these problems made it for you to do your work, take care of things at home, or get along with other people?: not difficult at all Source: Developed by Drs. Toño Loyd, Maria Antonia Rea, Perez Vázquez and colleagues, with an educational evens from [employer]. 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 no SAB complaints. compliance with PNV, OB panel drawn, results pending. change PNV to another brand, insurance not covering. schedule NT sacn. NIPT nv, + FHT on sono 01/13/25 <del>?</del> 10w 4d 79.492 kg 121/77 absent unknown 12 145 absent no ob complaints. no sab complaints, [facility] sched 02/03. contin PNV NIPT/carrier screen, . keep [facility] appointment 02/03/25. sab precaution. hydrate. rtc 4 week 03/01/25 <del>?</del> 17w 2d 81.817 kg 117/70 absent unknown 17 145 decreased No SAB complaints. Reports movement. Denies leaking or bleeding. Patient has a follow-up maternal- medicine appointment for March. No SAB complaints. Reports movement. Denies leaking or bleeding. Patient has a follow-up maternal- medicine appointment for March. [facility] 03/01 Keep appointment in March for follow-up MFM. aFP today. Discussed labor and SAB precautions. Increase fluids. Continue prenatals return in 4 weeks OB check 03/29/25 <del>?</del> 21w 2d 83.971 kg 116/73 absent unknown 21 145 active No SAB complaints. Positive movement. [facility] appointment March 31. Denies leaking, bleeding, contractions. Complains of ligament pain Start low-dose baby aspirin 1 daily. Keep appointment March 31 with [facility]. Discussed labor precautions. Increase fluids. Continue prenatals. Return in 4 weeks OB check. Comfort measures for ligament pain 04/26/25 <del>?</del> 25w 2d 86.409 kg 106/72 absent unknown 25 140 active Reports good movement. Denies leaking, denies bleeding, denies contractions. Continue low-dose baby aspirin and vitamin. Follow-up maternal- medicine sono is June 30. I gave patient lab slip for third trimester labs. Discussed diet and weight gain. labor precautions. Return in 4 4 weeks OB check 05/13/25 <del>?</del> 27w 5d 85.049 kg 128/68 absent unknown 28 145 active + FM, denies leaking,bleeding,UC. c/o vag irritation and discharge. + whiff. Heavy christianson discharge, vagina red comfort measure for vaginitis. nuswab plus, Diflucan 150 x3, flagyl 500 bid x7, gynelotrimin x 7. 3 hr gtt. mfm 07/06. discuss diet and weight. keep sched appointment 05/24/25 <del>?</del> 29w 2d 85.332 kg 104/70 absent unknown 29 145 active Fetus active. Sugars at goal 95% of the time. Denies leaking, bleeding, contractions. Patient is compliant with diet and doing well with that. She has a follow-up MFM appointment June 30 Continue GDM diet. Continue to log sugars. Schedule weekly NST BPP. Kick count at 32 weeks. Continue prenatals. Return in 2 weeks OB check. And keep MFM appointment for June 30 BRITT Calculator Estimated Delivery Date Method Current WG Current Estimate 08/07/25 LMP (Certain) 29w 2d Other Estimates 08/07/25 Ultrasound #1 29w 2d 08/07/25 Ultrasound #2 29w 2d 08/07/25 Manual 29w 2d final BRITT: 08/07/25 Notes Visit Date: 05/13/25 Last Updated by: Veda Quigley CNM 2: 1 hr gtt: 142, ,a1: 5.1, RPR::NR Visit Date: 03/29/25 Last Updated by: Veda Quigley CNM 34 yo . LMP 10/31/24, edc: 08/07/25. O+,abs-, rpr;;nr, rub imm, hbsag-, hiv-,HC-, GC/CT-. AFP/NIPT -, carrier screen- Visit Date: 03/01/25 Last Updated by: Veda Quigley CNM NIPT- Visit Date: 01/13/25 Last Updated by: Veda Quigley CNM 34 yo lmp 10/31/24. EDC 08/07/25. O+,abs-, RPR::NR, rub imm, hbsag-,hiv-, GC/CT-, Office Procedures OBC Clinic LOC & Office Proc's Nursing/Assessment Patient Status: Established Patient OB Clinic Nursing Assessment: Medication Reconciliation, Update PMH in EMR and Vital Signs OB Clinic Coordination of Care: Complex Care and Chronic Disease 1-5, Education Complex Pt/Fam, Consent,records obtained, informed consent, Results/Orders obtained and Staff clarify orders Special Needs: Heart tones Established Patient Charge Established Patient Point Assignment: 125 Established Patient Point Charge: EP Level 4 (120-155) Assessment & Plan Diagnosis / Problem List (1) High risk case management patient in third trimester: Status: Acute (2) Diet controlled gestational diabetes mellitus (GDM) in third trimester: Status: Acute Plan Continue GDM diet. Continue to log sugars. Start weekly NST BPP at 32 weeks. Kick count at 32 weeks. Schedule with maternal- medicine follow-up on June 30. Return in 3 weeks OB check Additional Plan Follow Up: 3 Weeks (obc)
== END 2025-05-24 09:49 | disposition home or self-care (01) ==
LOC: HODSOBC 08:59
PROVIDERS: Supervising Provider Advanced Practice Midwife; Visit Provider Advanced Practice Midwife
DX: O09.893 Supervision of other high risk pregnancies, third trimester (principal); O24.410 Gestational diabetes mellitus in pregnancy, diet controlled; O09.523 Supervision of elderly multigravida, third trimester; Z3A.29 29 weeks gestation of pregnancy
CPT/HCPCS: 99214; G0463

== ENCOUNTER 2025-06-14 14:35 | Outpatient (AMB) | payer MEDICAID, SELFPAY ==
[2025-06-14 14:42] VITALS: BP 102/66; PULSE 86; RESP 16; TEMP 36.4; O2SAT 98; BMI 34.2
--- NOTE | 2025-06-14 14:42 | OBCLNT_ITS ---
Vital Signs 06/14/25 14:42 Height 1.57 m Height Method Stated Weight 85.049 kg Weight Measurement Method Standing Scale BMI 34.2 BP 102/66 Blood Pressure Source Automatic Cuff Blood Pressure Location Left Upper Arm Position Sitting Respiration 16 Pulse 86 Pulse Source Monitor Temp 97.6 F Temp Source Oral Pulse Oximetry (%) 98 Oxygen Delivery Method Room Air Allergies/Home Meds Allergies & Medications Allergies No Known Allergies Allergy (Verified 06/14/25 14:43) Medication Reconciliation vitamins with calcium no.72-iron 29 mg-folic acid 1 mg tablet ( Plus) 1 tab PO QDAY 90 days #90 tabs 11/25/24 [Rx Confirmed 06/14/25] vitamin-ferrous fumarate 28 mg iron-folic acid 800 mcg tablet ( Vitamins with Minerals) 1 tab PO QDAY 30 days #60 tabs 12/22/24 [Rx Confirmed 06/14/25] aspirin 81 mg tablet,delayed release (Adult Aspirin Regimen) 81 mg PO QDAY #60 tabs 03/29/25 [Rx Confirmed 06/14/25] blood sugar diagnostic (Blood Glucose Test strips) #10 ea 05/18/25 [Rx Confirmed 06/14/25] blood-glucose meter #1 ea 05/18/25 [Rx Confirmed 05/24/25] blood-glucose meter #1 ea 05/18/25 [Rx Confirmed 06/14/25] lancets #100 ea 05/18/25 [Rx Confirmed 06/14/25] blood sugar diagnostic (Blood Glucose Test strips) #50 ea 06/14/25 [Rx] lancets #100 ea 06/14/25 [Rx] Intake Visit Data Collection New Patient or Established: Established Patient (seen at [facility] within 3 years) Reason for Visit:: CARE Seen by Clinical Staff ONLY (RN/MA): No Classified Advertising Clerk Required: No Do You Feel Safe at Home: Yes Authorities Contacted: N/A PCP or OBGYN visit in last 3 months: Yes Hx Now: Yes Are you currently on any form of Control: No Pain Present Currently: No Pain Scale Used: Fishman-Naidu/Numerical Pain scale:: 0 Smoking Status Smoking Status: Never smoker Immunizations Flu Vaccine in the Last 12 Months: No Flu Vaccine Exclusion Criteria: No Exclusion Criteria Questionnaires Covid-19 Vaccine Questionnaire Has patient been vacinated for Covid-19 Have you been vacinated for Covid-19: Yes PHQ-9 PHQ-2 Over the last 2 weeks, how often have you been bothered by any of the following problems? 1. Little interest or pleasure in doing things: not at all 2. Feeling down, depressed, or hopeless: not at all Total score: 0 PHQ-9 3. Trouble falling or staying asleep, or sleeping too much: Not at all 4. Feeling tired or having little energy: Not at all 5. Poor appetite or overeating: Not at all 6. Feeling bad about yourself - or that you are a failure or have let yourself or your family down: Not at all 7. Trouble concentrating on things, such as reading the newspaper or watching television: Not at all 8. Moving or speaking so slowly that other people could have noticed? - Or the opposite - being so fidgety or restless that you have been moving around a lot more than usual: not at all 9. Thoughts that you would be better off or of hurting yourself in some way: Not at all Total score: 0 Source: Developed by Drs. Toño Loyd, Maria Antonia Rea, Perez Vázquez and colleagues, with an educational evens from [employer]). 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 no SAB complaints. compliance with PNV, OB panel drawn, results pending. change PNV to another brand, insurance not covering. schedule NT sacn. NIPT nv, + FHT on sono 01/13/25 -?-?-?-?-?-?-?-?-?-?-?-?- 10w 4d 79.492 kg 121/77 absent unknown 12 145 absent no ob complaints. no sab complaints, [facility] sched 02/03. contin PNV NIPT/carrier screen, . keep [facility] appointment 02/03/25. sab precaution. hydrate. rtc 4 week 03/01/25 -?-?-?-?-?-?-?-?-?-?-?-?- 17w 2d 81.817 kg 117/70 absent unknown 17 145 decreased No SAB complaints. Reports movement. Denies leaking or bleeding. Patient has a follow-up maternal- medicine appointment for March. No SAB complaints. Reports movement. Denies leaking or bleeding. Patient has a follow-up maternal- medicine appointment for March. [facility] 03/01 Keep appointment in March for follow-up MFM. aFP today. Discussed labor and SAB precautions. Increase fluids. Continue prenatals return in 4 weeks OB check 03/29/25 -?-?-?-?-?-?-?-?-?-?-?-?- w 2d 83.971 kg 116/73 absent unknown 21 145 active No SAB complaints. Positive movement. [facility] appointment March 31. Denies leaking, bleeding, contractions. Complains of ligament pain Start low-dose baby aspirin 1 daily. Keep appointment March 31 with [facility]. Discussed labor precautions. Increase fluids. Continue prenatals. Return in 4 weeks OB check. Comfort measures for ligament pain 04/26/25 -?-?-?-?-?-?-?-?-?-?-?-?- 25w 2d 86.409 kg 106/72 absent unknown 25 140 active Reports good movement. Denies leaking, denies bleeding, denies contractions. Continue low- dose baby aspirin and vitamin. Follow-up maternal- medicine sono is June 30. I gave patient lab slip for third trimester labs. Discussed diet and weight gain. labor precautions. Return in 4 4 weeks OB check 05/13/25 -?-?-?-?-?-?-?-?-?-?-?-?- 27w 5d 85.049 kg 128/68 absent unknown 28 145 active + FM, denies leaking,bleeding,UC. c/o vag irritation and discharge. + whiff. Heavy christianson discharge, vagina red comfort me asure for vaginitis. nuswab plus, Diflucan 150 x3, flagyl 500 bid x7, gynelotrimin x 7. 3 hr gtt. mfm 07/06. discuss diet and weight. keep sched appointment 05/24/25 -?-?-?-?-?-?-?-?-?-?-?-?- 29w 2d 85.332 kg 104/70 absent unknown 29 145 active Fetus active. Sugars at goal 95% of the time. Denies leaking, bleeding, contractions. Patient is compliant with diet and doing well with that. She has a follow-up MFM appointment June 30 Nick carver GDM diet. Continue to log sugars. Schedule weekly NST BPP. Kick count at 32 weeks. Continue prenatals. Return in 2 weeks OB check. And keep MFM appointment for June 30 06/14/25 -?-?-?-?-?-?-?-?-?-?-?-?- 32w 2d 85.049 kg 102/66 absent unknown 32 145 active Fetus active. Doing well with glucose monitoring and testing. Denies leaking, bleeding, contractions. And her insurance has approved for weekly NST BPP Refill lancets and test strips. Patient will schedule a weekly NST BPP. Sugars at goal like 95% of the time. Reviewed diet with patient advised to increase walking activity. And we discussed monitoring sugars. Start kick count twice a day. Return in 2 weeks OB check. Patient has a follow-up appointment at [facility] June 30. Return in 2 weeks OB check BRITT Calculator Estimated Delivery Date Method Current WG Current Estimate 08/07/25 LMP (Certain) 32w 2d Other Estimates 08/07/25 Ultrasound #1 32w 2d 08/07/25 Ultrasound #2 32w 2d 08/07/25 Manual 32w 2d final BRITT: 07/13 03/05 Notes Visit Date: 05/13/25 Last Updated by: Veda Quigley CNM 05/13: 1 hr gtt: 142, ,a1: 5.1, RPR::NR Visit Date: 03/29/25 Last Updated by: Veda Quigley CNM 34 yo . LMP 10/31/24, edc: 08/07/25. O+,abs-, rpr;;nr, rub imm, hbsag- , hiv-,HC-, GC/CT-. AFP/NIPT -, carrier screen- Visit Date: 03/01/25 Last Updated by: Veda Quigley CNM NIPT- Visit Date: 01/13/25 Last Updated by: Veda Quigley CNM 34 yo lmp 10/31/24. EDC 08/07/25. O+,abs-, RPR::NR, rub imm, hbsag-,hiv-, GC/CT-, Office Procedures OBC Clinic LOC & Office Proc's Nursing/Assessment Patient Status: Established Patient OB Clinic Nursing Assessment: Medication Reconciliation, Update PMH in EMR and Vital Signs OB Clinic Coordination of Care: AMA, Complex Care and Chronic Disease 1-5, Consent,records obtained, informed consent, Education Simp Pt/Fam, 1 Ins Authorization, Lab and Imaging orders and Staff clarify orders Special Needs: Heart tones Established Patient Charge Established Patient Point Assignment: 165 Established Patient Point Charge: EP Level 5 (160-above) Assessment & Plan Diagnosis / Problem List (1) Diet controlled gestational diabetes mellitus (GDM) in third trimester: Status: Acute (2) High risk case management patient in third trimester: Status: Acute Plan Kick count twice a day. I refilled lancets and test strips. Reviewed GDM diet and glucose monitoring. Weekly NST BPP is pending. Patient has an MFM appointment June 30. Increase fluids. Remember to walk 40 minutes a day. Return in 2 weeks OB check Additional Plan Follow Up: 2 Weeks (obc)
== END 2025-06-14 14:54 | disposition home or self-care (01) ==
LOC: HODSOBC 14:35
PROVIDERS: Supervising Provider Advanced Practice Midwife; Visit Provider Advanced Practice Midwife
DX: O09.893 Supervision of other high risk pregnancies, third trimester (principal); O24.410 Gestational diabetes mellitus in pregnancy, diet controlled; O09.523 Supervision of elderly multigravida, third trimester; Z3A.32 32 weeks gestation of pregnancy
CPT/HCPCS: 99214; 99215; G0463

== ENCOUNTER 2025-07-05 08:27 | Outpatient (AMB) | payer MEDICAID, SELFPAY ==
[2025-07-05 08:43] VITALS: BP 101/65; PULSE 83; RESP 18; TEMP 36.4; O2SAT 97; BMI 34.4
--- NOTE | 2025-07-05 08:43 | AMB.OBPNC ---
Vital Signs 07/05/25 08:43 Height 1.57 m Height Method Stated Weight 84.822 kg Weight Measurement Method Standing Scale BMI 34.4 BP 101/65 Blood Pressure Source Automatic Cuff Blood Pressure Location Right Upper Arm Position Sitting Respiration 18 Pulse 83 Pulse Source Monitor Temp 97.5 F Temp Source Temporal Artery Scan Pulse Oximetry (%) 97 Oxygen Delivery Method Room Air Allergies/Home Meds Allergies & Medications Allergies No Known Allergies Allergy (Verified 07/05/25 08:44) Medication Reconciliation vitamins with calcium no.72-iron 29 mg-folic acid 1 mg tablet ( Plus) 1 tab PO QDAY 90 days #90 tabs 11/25/24 [Rx Confirmed 07/05/25] vitamin-ferrous fumarate 28 mg iron-folic acid 800 mcg tablet ( Vitamins with Minerals) 1 tab PO QDAY 30 days #60 tabs 12/22/24 [Rx Confirmed 07/05/25] aspirin 81 mg tablet,delayed release (Adult Aspirin Regimen) 81 mg PO QDAY #60 tabs 03/29/25 [Rx Confirmed 07/05/25] blood sugar diagnostic (Blood Glucose Test strips) #10 ea 05/18/25 [Rx Confirmed 07/05/25] blood-glucose meter #1 ea 05/18/25 [Rx Confirmed 07/05/25] blood-glucose meter #1 ea 05/18/25 [Rx Confirmed 07/05/25] lancets #100 ea 05/18/25 [Rx Confirmed 07/05/25] blood sugar diagnostic (Blood Glucose Test strips) #50 ea 06/14/25 [Rx Confirmed 07/05/25] lancets #100 ea 06/14/25 [Rx Confirmed 07/05/25] Immunizations Immunizations Flu Vaccine in the Last 12 Months: No Flu Vaccine Exclusion Criteria: Refused by Patient Care OB Visit Log OB Flowsheet Initial Weight: Not Recorded Date <del>?</del> EGA Weight BP Alb Glu CTX Pres Fundal ht FHR Mov Dilation Station Effacement Hx Notes Visit Note 12/22/24 <del>?</del> 7w 3d 78.925 kg 115/76 absent 8 c/o slight nausea. no SAB complaints. compliance with PNV, OB panel drawn, results pending. change PNV to another brand, insurance not covering. schedule NT sacn. NIPT nv, + FHT on sono 01/13/25 <del>?</del> 10w 4d 79.492 kg 121/77 absent unknown 12 145 absent no ob complaints. no sab complaints, [facility] sched 02/03. contin PNV NIPT/carrier screen, . keep [facility] appointment 02/03/25. sab precaution. hydrate. rtc 4 week 03/01/25 <del>?</del> 17w 2d 81.817 kg 117/70 absent unknown 17 145 decreased No SAB complaints. Reports movement. Denies leaking or bleeding. Patient has a follow-up maternal- medicine appointment for March. No SAB complaints. Reports movement. Denies leaking or bleeding. Patient has a follow-up maternal- medicine appointment for March. MFM 03/01 Keep appointment in March for follow-up MFM. aFP today. Discussed labor and SAB precautions. Increase fluids. Continue prenatals return in 4 weeks OB check 03/29/25 <del>?</del> 21w 2d 83.971 kg 116/73 absent unknown 21 145 active No SAB complaints. Positive movement. [facility] appointment March 31. Denies leaking, bleeding, contractions. Complains of ligament pain Start low-dose baby aspirin 1 daily. Keep appointment March 31 with [facility]. Discussed labor precautions. Increase fluids. Continue prenatals. Return in 4 weeks OB check. Comfort measures for ligament pain 04/26/25 <del>?</del> 25w 2d 86.409 kg 106/72 absent unknown 25 140 active Reports good movement. Denies leaking, denies bleeding, denies contractions. Continue low-dose baby aspirin and vitamin. Follow-up maternal- medicine sono is June 30. I gave patient lab slip for third trimester labs. Discussed diet and weight gain. labor precautions. Return in 4 4 weeks OB check 05/13/25 <del>?</del> 27w 5d 85.049 kg 128/68 absent unknown 28 145 active + FM, denies leaking,bleeding,UC. c/o vag irritation and discharge. + whiff. Heavy christianson discharge, vagina red comfort measure for vaginitis. nuswab plus, Diflucan 150 x3, flagyl 500 bid x7, gynelotrimin x 7. 3 hr gtt. mfm 07/06. discuss diet and weight. keep sched appointment 05/24/25 <del>?</del> 29w 2d 85.332 kg 104/70 absent unknown 29 145 active Fetus active. Sugars at goal 95% of the time. Denies leaking, bleeding, contractions. Patient is compliant with diet and doing well with that. She has a follow-up MFM appointment June 30 Continue GDM diet. Continue to log sugars. Schedule weekly NST BPP. Kick count at 32 weeks. Continue prenatals. Return in 2 weeks OB check. And keep MFM appointment for June 30 06/14/25 <del>?</del> 32w 2d 85.049 kg 102/66 absent unknown 32 145 active Fetus active. Doing well with glucose monitoring and testing. Denies leaking, bleeding, contractions. And her insurance has approved for weekly NST BPP Refill lancets and test strips. Patient will schedule a weekly NST BPP. Sugars at goal like 95% of the time. Reviewed diet with patient advised to increase walking activity. And we discussed monitoring sugars. Start kick count twice a day. Return in 2 weeks OB check. Patient has a follow-up appointment at [facility] June 30. Return in 2 weeks OB check 07/05/25 <del>?</del> 35w 2d 84.822 kg 101/65 absent cephalic 35 145 active Fetus active. Doing well. No complaints of contractions. No bleeding no leaking. Maternal medicine was last . But report is pending Follow-up on MFM visit. Continue to monitor sugars 4 times a day. Continue GDM diet. Continue weekly NST BPP. Will schedule induction at 39 weeks. Discussed kick count and labor precautions. Return week OB check. GBS nv Follow-up on MFM visit. Continue to monitor sugars 4 times a day. Continue GDM diet. Continue weekly NST BPP. Will schedule induction at 39 weeks. Discussed kick count and labor precautions. Return week OB check. GBS nv. IOL 07/31/25 Follow-up on [facility] visit. Continue to monitor sugars 4 times a day. Continue GDM diet. Continue weekly NST BPP. Will schedule induction at 39 weeks. Discussed kick count and labor precautions. Return week OB check. GBS nv. IOL 07/31/25. flu vaccine BRITT Calculator Estimated Delivery Date Method Current WG Current Estimate 08/07/25 LMP (Certain) 35w 2d Other Estimates 08/07/25 Ultrasound #1 35w 2d 08/07/25 Ultrasound #2 35w 2d 08/07/25 Manual 35w 2d final BRITT: 08/07/25 Notes Visit Date: 05/13/25 Last Updated by: Veda Quigley CNM 05/13: 1 hr gtt: 142, ,a1: 5.1, RPR::NR Visit Date: 03/29/25 Last Updated by: Veda Quigley CNM 34 yo . LMP 10/31/24, edc: 08/07/25. O+,abs-, rpr;;nr, rub imm, hbsag-, hiv-,HC-, GC/CT-. AFP/NIPT -, carrier screen- Visit Date: 03/01/25 Last Updated by: Veda Quigley CNM NIPT- Visit Date: 01/13/25 Last Updated by: Veda Quigley CNM 34 yo lmp 10/31/24. EDC 08/07/25. O+,abs-, RPR::NR, rub imm, hbsag-,hiv-, GC/CT-, Office Procedures OBC Clinic LOC & Office Proc's Nursing/Assessment Patient Status: Established Patient OB Clinic Nursing Assessment: Medication Reconciliation, Update PMH in EMR and Vital Signs OB Clinic Coordination of Care: Complex Care and Chronic Disease 1-5, Education Complex Pt/Fam, Consent,records obtained, informed consent, Lab and Imaging orders, Results/Orders obtained and Staff clarify orders Special Needs: Heart tones Miscellaneous Interventions: Culture Specimen Collection Established Patient Charge Established Patient Point Assignment: 155 Established Patient Point Charge: EP Level 4 (120-155) Injection/Vaccine Admin SQ Im Injection: Yes Immunizations flu vac ts (6mos up)-PF 45 mcg(15mcg x3)/0.5 mL IM syringe Performing Provider: Veda Quigley CNM Performing Location: [facility] Administered by: Guera Burgess MA on 07/05/25 10:32 Dose Route Admin Location Dispensed Lot Number Expiration Date Package NDC NDC Lepidopterist 0.5 mL IM Left Deltoid 0.5 mL [id number] 02/08/26 [id number] Zang VIS Given Date VIS Provided VIS Publication Date 07/05/25 Single Vaccine 24 Eligibility Eligibility Date Funding Source Public Non-[facility] Assessment & Plan Diagnosis / Problem List (1) High risk case management patient in third trimester: Status: Acute (2) Diet controlled gestational diabetes mellitus (GDM) in third trimester: Status: Acute Plan Induced labor August 08, 2025. Continue weekly NST BPP. Continue GDM diet. Continue monitoring blood sugars 4 times a day. Walk 40 minutes daily. Kick count twice a day. And call for results when available [facility]. Additional Plan Follow Up: 1 Week (obc)
== END 2025-07-05 09:16 | disposition home or self-care (01) ==
PROVIDERS: Supervising Provider Advanced Practice Midwife; Visit Provider Advanced Practice Midwife
DX: O09.893 Supervision of other high risk pregnancies, third trimester (principal); O24.410 Gestational diabetes mellitus in pregnancy, diet controlled; O09.523 Supervision of elderly multigravida, third trimester; Z3A.35 35 weeks gestation of pregnancy; Z23 Encounter for immunization
CPT/HCPCS: 90471; 90686; 96372; 99214; G0463; J9060

== ENCOUNTER 2025-07-14 14:57 | Outpatient (AMB) | payer MEDICAID, SELFPAY ==
[2025-07-14 15:13] VITALS: BP 117/74; PULSE 94; RESP 18; TEMP 36.6; O2SAT 96; BMI 35.0
--- NOTE | 2025-07-14 15:13 | AMB.OBPNC ---
Vital Signs 07/14/25 15:13 Height 1.57 m Height Method Stated Weight 86.353 kg Weight Measurement Method Standing Scale BMI 35.0 BP 117/74 Blood Pressure Source Automatic Cuff Blood Pressure Location Left Upper Arm Position Sitting Respiration 18 Pulse 94 Pulse Source Monitor Temp 97.8 F Temp Source Oral Pulse Oximetry (%) 96 Oxygen Delivery Method Room Air Allergies/Home Meds Allergies & Medications Allergies No Known Allergies Allergy (Verified 07/14/25 15:15) Medication Reconciliation vitamins with calcium no.72-iron 29 mg-folic acid 1 mg tablet ( Plus) 1 tab PO QDAY 90 days #90 tabs 11/25/24 [Rx Confirmed 07/14/25] vitamin-ferrous fumarate 28 mg iron-folic acid 800 mcg tablet ( Vitamins with Minerals) 1 tab PO QDAY 30 days #60 tabs 12/22/24 [Rx Confirmed 07/14/25] aspirin 81 mg tablet,delayed release (Adult Aspirin Regimen) 81 mg PO QDAY #60 tabs 03/29/25 [Rx Confirmed 07/14/25] blood sugar diagnostic (Blood Glucose Test strips) #10 ea 05/18/25 [Rx Confirmed 07/14/25] blood-glucose meter #1 ea 05/18/25 [Rx Confirmed 07/14/25] blood-glucose meter #1 ea 05/18/25 [Rx Confirmed 07/14/25] lancets #100 ea 05/18/25 [Rx Confirmed 07/14/25] blood sugar diagnostic (Blood Glucose Test strips) #50 ea 06/14/25 [Rx Confirmed 07/14/25] lancets #100 ea 06/14/25 [Rx Confirmed 07/14/25] Immunizations Immunizations Flu Vaccine in the Last 12 Months: Yes Flu Vaccine Exclusion Criteria: Already Received Care OB Visit Log OB Flowsheet Initial Weight: Not Recorded Date <del>?</del> EGA Weight BP Alb Glu CTX Pres Fundal ht FHR Mov Dilation Station Effacement Hx Notes Visit Note 12/22/24 <del>?</del> 7w 3d 78.925 kg 115/76 absent 8 c/o slight nausea. no SAB complaints. compliance with PNV, OB panel drawn, results pending. change PNV to another brand, insurance not covering. schedule NT sacn. NIPT nv, + FHT on sono 01/13/25 <del>?</del> 10w 4d 79.492 kg 121/77 absent unknown 12 145 absent no ob complaints. no sab complaints, [facility] sched 02/03. contin PNV NIPT/carrier screen, . keep [facility] appointment 02/03/25. sab precaution. hydrate. rtc 4 week 03/01/25 <del>?</del> 17w 2d 81.817 kg 117/70 absent unknown 17 145 decreased No SAB complaints. Reports movement. Denies leaking or bleeding. Patient has a follow-up maternal- medicine appointment for March. No SAB complaints. Reports movement. Denies leaking or bleeding. Patient has a follow-up maternal- medicine appointment for March. MFM 03/01 Keep appointment in March for follow-up MFM. aFP today. Discussed labor and SAB precautions. Increase fluids. Continue prenatals return in 4 weeks OB check 03/29/25 <del>?</del> 21w 2d 83.971 kg 116/73 absent unknown 21 145 active No SAB complaints. Positive movement. [facility] appointment March 31. Denies leaking, bleeding, contractions. Complains of ligament pain Start low-dose baby aspirin 1 daily. Keep appointment March 31 with [facility]. Discussed labor precautions. Increase fluids. Continue prenatals. Return in 4 weeks OB check. Comfort measures for ligament pain 04/26/25 <del>?</del> 25w 2d 86.409 kg 106/72 absent unknown 25 140 active Reports good movement. Denies leaking, denies bleeding, denies contractions. Continue low-dose baby aspirin and vitamin. Follow-up maternal- medicine sono is June 30. I gave patient lab slip for third trimester labs. Discussed diet and weight gain. labor precautions. Return in 4 4 weeks OB check 05/13/25 <del>?</del> 27w 5d 85.049 kg 128/68 absent unknown 28 145 active + FM, denies leaking,bleeding,UC. c/o vag irritation and discharge. + whiff. Heavy christianson discharge, vagina red comfort measure for vaginitis. nuswab plus, Diflucan 150 x3, flagyl 500 bid x7, gynelotrimin x 7. 3 hr gtt. mfm 07/06. discuss diet and weight. keep sched appointment 05/24/25 <del>?</del> 29w 2d 85.332 kg 104/70 absent unknown 29 145 active Fetus active. Sugars at goal 95% of the time. Denies leaking, bleeding, contractions. Patient is compliant with diet and doing well with that. She has a follow-up MFM appointment June 30 Continue GDM diet. Continue to log sugars. Schedule weekly NST BPP. Kick count at 32 weeks. Continue prenatals. Return in 2 weeks OB check. And keep MFM appointment for June 30 06/14/25 <del>?</del> 32w 2d 85.049 kg 102/66 absent unknown 32 145 active Fetus active. Doing well with glucose monitoring and testing. Denies leaking, bleeding, contractions. And her insurance has approved for weekly NST BPP Refill lancets and test strips. Patient will schedule a weekly NST BPP. Sugars at goal like 95% of the time. Reviewed diet with patient advised to increase walking activity. And we discussed monitoring sugars. Start kick count twice a day. Return in 2 weeks OB check. Patient has a follow-up appointment at [facility] June 30. Return in 2 weeks OB check 07/05/25 <del>?</del> 35w 2d 84.822 kg 101/65 absent cephalic 35 145 active Fetus active. Doing well. No complaints of contractions. No bleeding no leaking. Maternal medicine was last . But report is pending Follow-up on MFM visit. Continue to monitor sugars 4 times a day. Continue GDM diet. Continue weekly NST BPP. Will schedule induction at 39 weeks. Discussed kick count and labor precautions. Return week OB check. GBS nv Follow-up on MFM visit. Continue to monitor sugars 4 times a day. Continue GDM diet. Continue weekly NST BPP. Will schedule induction at 39 weeks. Discussed kick count and labor precautions. Return week OB check. GBS nv. IOL 07/31/25 Follow-up on [facility] visit. Continue to monitor sugars 4 times a day. Continue GDM diet. Continue weekly NST BPP. Will schedule induction at 39 weeks. Discussed kick count and labor precautions. Return week OB check. GBS nv. IOL 07/31/25. flu vaccine 07/14/25 <del>?</del> 36w 4d 86.353 kg 117/74 absent cephalic 35 145 active Patient reports sugars are at goal. Fastings are all below 100. Sugars at goal 95% of the time. She is compliant with weekly NST BPP and diet. She has a follow-up ultrasound coming in the . Denies leaking, bleeding, contractions f/u sono 07/30. f/u sono 07/30.IOL 07/31/25. Continue GDM diet. Walk 40 minutes a day. Continue to log blood sugars 4 times a day. Kick count twice a day. Reviewed danger signs symptoms and ER precautions. And continue weekly NST BPP. Return week OB check BRITT Calculator Estimated Delivery Date Method Current WG Current Estimate 08/07/25 LMP (Certain) 36w 4d Other Estimates 08/07/25 Ultrasound #1 36w 4d 08/07/25 Ultrasound #2 36w 4d 08/07/25 Manual 36w 4d final BRITT: 08/07/25 Notes Visit Date: 07/14/25 Last Updated by: Veda Quigley CNM GBS+, sono 06/30/25: 34w4, EFW 12% Visit Date: 05/13/25 Last Updated by: Veda Quigley CNM 2: 1 hr gtt: 142, ,a1: 5.1, RPR::NR Visit Date: 03/29/25 Last Updated by: Veda Quigley CNM 34 yo . LMP 10/31/24, edc: 08/07/25. O+,abs-, rpr;;nr, rub imm, hbsag-, hiv-,HC-, GC/CT-. AFP/NIPT -, carrier screen- Visit Date: 03/01/25 Last Updated by: Veda Quigley CNM NIPT- Visit Date: 01/13/25 Last Updated by: Veda Quigley CNM 34 yo lmp 10/31/24. EDC 08/07/25. O+,abs-, RPR::NR, rub imm, hbsag-,hiv-, GC/CT-, Office Procedures OBC Clinic LOC & Office Proc's Nursing/Assessment Patient Status: Established Patient OB Clinic Nursing Assessment: Medication Reconciliation, Update PMH in EMR and Vital Signs OB Clinic Coordination of Care: AMA, Complex Care and Chronic Disease 1-5, Consent,records obtained, informed consent, Education Simp Pt/Fam, 1 Ins Authorization, Lab and Imaging orders, Results/Orders obtained and Staff clarify orders Special Needs: Heart tones Established Patient Charge Established Patient Point Assignment: 170 Established Patient Point Charge: EP Level 5 (160-above) Assessment & Plan Diagnosis / Problem List (1) Diet controlled gestational diabetes mellitus (GDM) in third trimester: Status: Acute (2) High risk case management patient in third trimester: Status: Acute Plan Discussed labor precautions. Kick count twice a day. Patient scheduled for induction of labor July 31. Continue to monitor blood sugars 4 times a day. GDM diet. Walk 40 minutes a day. Discussed weekly NST BPP return week OB check Additional Plan Follow Up: 1 Week (obc)
== END 2025-07-14 15:50 | disposition home or self-care (01) ==
LOC: HODSOBC 14:57
PROVIDERS: Supervising Provider Advanced Practice Midwife; Visit Provider Advanced Practice Midwife
DX: O09.893 Supervision of other high risk pregnancies, third trimester (principal); O24.410 Gestational diabetes mellitus in pregnancy, diet controlled; O99.820 Streptococcus B carrier state complicating pregnancy; O09.523 Supervision of elderly multigravida, third trimester; Z3A.36 36 weeks gestation of pregnancy
CPT/HCPCS: 99215; G0463

== ENCOUNTER 2025-07-23 08:34 | Outpatient (AMB) | payer MEDICAID, SELFPAY ==
[2025-07-23 08:50] VITALS: BP 125/84; PULSE 83; RESP 18; TEMP 36.6; O2SAT 96; BMI 34.8
--- NOTE | 2025-07-23 08:50 | AMB.OBPNC ---
Vital Signs 07/23/25 08:50 Height 1.57 m Height Method Stated Weight 85.786 kg Weight Measurement Method Standing Scale BMI 34.8 BP 125/84 Blood Pressure Source Automatic Cuff Blood Pressure Location Right Upper Arm Position Sitting Respiration 18 Pulse 83 Pulse Source Monitor Temp 97.9 F Temp Source Temporal Artery Scan Pulse Oximetry (%) 96 Oxygen Delivery Method Room Air Allergies/Home Meds Allergies & Medications Allergies No Known Allergies Allergy (Verified 07/23/25 08:52) Medication Reconciliation vitamins with calcium no.72-iron 29 mg-folic acid 1 mg tablet ( Plus) 1 tab PO QDAY 90 days #90 tabs 11/25/24 [Rx Confirmed 07/23/25] vitamin-ferrous fumarate 28 mg iron-folic acid 800 mcg tablet ( Vitamins with Minerals) 1 tab PO QDAY 30 days #60 tabs 12/22/24 [Rx Confirmed 07/23/25] aspirin 81 mg tablet,delayed release (Adult Aspirin Regimen) 81 mg PO QDAY #60 tabs 03/29/25 [Rx Confirmed 07/23/25] blood sugar diagnostic (Blood Glucose Test strips) #10 ea 05/18/25 [Rx Confirmed 07/23/25] blood-glucose meter #1 ea 05/18/25 [Rx Confirmed 07/23/25] blood-glucose meter #1 ea 05/18/25 [Rx Confirmed 07/23/25] lancets #100 ea 05/18/25 [Rx Confirmed 07/23/25] blood sugar diagnostic (Blood Glucose Test strips) #50 ea 06/14/25 [Rx Confirmed 07/23/25] lancets #100 ea 06/14/25 [Rx Confirmed 07/23/25] Immunizations Immunizations Flu Vaccine in the Last 12 Months: No Flu Vaccine Exclusion Criteria: No Exclusion Criteria Care OB Visit Log OB Flowsheet Initial Weight: Not Recorded Date <del>?</del> EGA Weight BP Alb Glu CTX Pres Fundal ht FHR Mov Dilation Station Effacement Hx Notes Visit Note 12/22/24 <del>?</del> 7w 3d 78.925 kg 115/76 absent 8 c/o slight nausea. no SAB complaints. compliance with PNV, OB panel drawn, results pending. change PNV to another brand, insurance not covering. schedule NT sacn. NIPT nv, + FHT on sono 01/13/25 <del>?</del> 10w 4d 79.492 kg 121/77 absent unknown 12 145 absent no ob complaints. no sab complaints, [facility] sched 02/03. contin PNV NIPT/carrier screen, . keep [facility] appointment 02/03/25. sab precaution. hydrate. rtc 4 week 03/01/25 <del>?</del> 17w 2d 81.817 kg 117/70 absent unknown 17 145 decreased No SAB complaints. Reports movement. Denies leaking or bleeding. Patient has a follow-up maternal- medicine appointment for March. No SAB complaints. Reports movement. Denies leaking or bleeding. Patient has a follow-up maternal- medicine appointment for March. MFM 03/01 Keep appointment in March for follow-up MFM. aFP today. Discussed labor and SAB precautions. Increase fluids. Continue prenatals return in 4 weeks OB check 03/29/25 <del>?</del> 21w 2d 83.971 kg 116/73 absent unknown 21 145 active No SAB complaints. Positive movement. [facility] appointment March 31. Denies leaking, bleeding, contractions. Complains of ligament pain Start low-dose baby aspirin 1 daily. Keep appointment March 31 with [facility]. Discussed labor precautions. Increase fluids. Continue prenatals. Return in 4 weeks OB check. Comfort measures for ligament pain 04/26/25 <del>?</del> 25w 2d 86.409 kg 106/72 absent unknown 25 140 active Reports good movement. Denies leaking, denies bleeding, denies contractions. Continue low-dose baby aspirin and vitamin. Follow-up maternal- medicine sono is June 30. I gave patient lab slip for third trimester labs. Discussed diet and weight gain. labor precautions. Return in 4 4 weeks OB check 05/13/25 <del>?</del> 27w 5d 85.049 kg 128/68 absent unknown 28 145 active + FM, denies leaking,bleeding,UC. c/o vag irritation and discharge. + whiff. Heavy christianson discharge, vagina red comfort measure for vaginitis. nuswab plus, Diflucan 150 x3, flagyl 500 bid x7, gynelotrimin x 7. 3 hr gtt. mfm 07/06. discuss diet and weight. keep sched appointment 05/24/25 <del>?</del> 29w 2d 85.332 kg 104/70 absent unknown 29 145 active Fetus active. Sugars at goal 95% of the time. Denies leaking, bleeding, contractions. Patient is compliant with diet and doing well with that. She has a follow-up MFM appointment June 30 Continue GDM diet. Continue to log sugars. Schedule weekly NST BPP. Kick count at 32 weeks. Continue prenatals. Return in 2 weeks OB check. And keep MFM appointment for June 30 06/14/25 <del>?</del> 32w 2d 85.049 kg 102/66 absent unknown 32 145 active Fetus active. Doing well with glucose monitoring and testing. Denies leaking, bleeding, contractions. And her insurance has approved for weekly NST BPP Refill lancets and test strips. Patient will schedule a weekly NST BPP. Sugars at goal like 95% of the time. Reviewed diet with patient advised to increase walking activity. And we discussed monitoring sugars. Start kick count twice a day. Return in 2 weeks OB check. [place] [facility] [place] Return in 2 weeks OB check 07/05/25 <del>?</del> 35w 2d 84.822 kg 101/65 absent cephalic 35 145 active Fetus active. Doing well. No complaints of contractions. No bleeding no leaking. Maternal medicine was last . But report is pending Follow-up on MFM visit. Continue to monitor sugars 4 times a day. Continue GDM diet. Continue weekly NST BPP. Will schedule induction at 39 weeks. Discussed kick count and labor precautions. Return week OB check. GBS nv Follow-up on MFM visit. Continue to monitor sugars 4 times a day. Continue GDM diet. Continue weekly NST BPP. Will schedule induction at 39 weeks. Discussed kick count and labor precautions. Return week OB check. GBS nv. IOL 07/31/25 Follow-up on [facility] visit. Continue to monitor sugars 4 times a day. Continue GDM diet. Continue weekly NST BPP. Will schedule induction at 39 weeks. Discussed kick count and labor precautions. Return week OB check. GBS nv. IOL 07/31/25. flu vaccine 07/14/25 <del>?</del> 36w 4d 86.353 kg 117/74 absent cephalic 35 145 active Patient reports sugars are at goal. Fastings are all below 100. Sugars at goal 95% of the time. She is compliant with weekly NST BPP and diet. She has a follow-up ultrasound coming in the . Denies leaking, bleeding, contractions f/u sono 07/30. f/u sono 07/30.IOL 07/31/25. Continue GDM diet. Walk 40 minutes a day. Continue to log blood sugars 4 times a day. Kick count twice a day. Reviewed danger signs symptoms and ER precautions. And continue weekly NST BPP. Return week OB check 07/23/25 <del>?</del> 37w 6d 85.786 kg 125/84 absent cephalic 37 145 active Sugar logs are at goal 95% of the time. Compliant with checking blood sugars 3 times a day. And weekly NST BPP. Fetus is active per patient. Occasional contraction. Denies leaking or bleeding. Patient scheduled for induction IOL schedule 07/31/25. Discussed kick count twice a day. Continue to monitor blood sugars 3 times a day. And log them. Reviewed GDM diet. Walking reactive. Continue weekly NST BPP.f/u sono for 07/30 at [facility] BRITT Calculator Estimated Delivery Date Method Current WG Current Estimate 08/07/25 LMP (Certain) 37w 6d Other Estimates 08/07/25 Ultrasound #1 37w 6d 08/07/25 Ultrasound #2 37w 6d 08/07/25 Manual 37w 6d final BRITT: 08/07/25 Notes Visit Date: 07/14/25 Last Updated by: Veda Quigley CNM GBS+, sono 06/30/25: 34w4, EFW 12% Visit Date: 05/13/25 Last Updated by: Veda Quigley CNM 2: 1 hr gtt: 142, ,a1: 5.1, RPR::NR Visit Date: 03/29/25 Last Updated by: Veda Quigley CNM 34 yo . LMP 10/31/24, edc: 08/07/25. O+,abs-, rpr;;nr, rub imm, hbsag-, hiv-,HC-, GC/CT-. AFP/NIPT -, carrier screen- Visit Date: 03/01/25 Last Updated by: Veda Quigley CNM NIPT- Visit Date: 01/13/25 Last Updated by: Veda Quigley CNM 34 yo lmp 10/31/24. EDC 08/07/25. O+,abs-, RPR::NR, rub imm, hbsag-,hiv-, GC/CT-, Office Procedures OBC Clinic LOC & Office Proc's Nursing/Assessment Patient Status: Established Patient OB Clinic Nursing Assessment: Medication Reconciliation, Update PMH in EMR and Vital Signs OB Clinic Coordination of Care: Complex Care and Chronic Disease 1-5, Education Complex Pt/Fam, Consent,records obtained, informed consent, Lab and Imaging orders, Results/Orders obtained and Staff clarify orders Special Needs: Heart tones Established Patient Charge Established Patient Point Assignment: 140 Established Patient Point Charge: EP Level 4 (120-155) Assessment & Plan Diagnosis / Problem List (1) Diet controlled gestational diabetes mellitus (GDM) in third trimester: Status: Acute (2) High risk case management patient in third trimester: Status: Acute (3) Advanced maternal age (AMA) in : Status: Acute Plan Kick count twice a day. Continue weekly NST BPP. Continue to monitor blood sugars and log results. Continue GDM diet. Discussed labor precautions and comfort measures patient scheduled for07/31 Additional Plan Follow Up: 1 Week (obc)
== END 2025-07-23 09:36 | disposition home or self-care (01) ==
LOC: HODSOBC 08:34
PROVIDERS: Supervising Provider Advanced Practice Midwife; Visit Provider Advanced Practice Midwife
DX: O09.893 Supervision of other high risk pregnancies, third trimester (principal); O24.410 Gestational diabetes mellitus in pregnancy, diet controlled; O09.523 Supervision of elderly multigravida, third trimester; Z3A.37 37 weeks gestation of pregnancy
CPT/HCPCS: 99214; G0463

== ENCOUNTER 2025-07-27 09:01 | Outpatient (RCR) | payer MEDICAID, SELFPAY ==
--- NOTE | 2025-06-21 12:33 | XR_ITS ---
Examination: Biophysical profile, ultrasound Date and time of exam: June 21, 2025, 1233 hours INDICATIONS: Diagnosis gestational diabetes, diagnosis advanced maternal age Technique: Multiple transabdominal sonographic images of the pelvis abdomen obtained. Attention is directed to the breathing movement, gross body movement, amniotic fluid volume and tone. Findings: Amniotic fluid index 10.2 cm Total biophysical profile is 8 of 8. breathing movement is 2. Gross body movement is 2. tone is 2. Qualitative amniotic fluid volume is 2 Impression: Biophysical profile is 8 of 8.
[2025-06-21 13:19] VITALS: BP 115/60; PULSE 83; RESP 16; TEMP 36.7
--- NOTE | 2025-06-29 14:52 | XR_ITS ---
Examination: Biophysical profile, ultrasound Date and time of exam: June 29, 2025, 1517 hours INDICATIONS: Diagnosis gestational diabetes, diagnosis advanced maternal age Technique: Multiple transabdominal sonographic images of the pelvis abdomen obtained. Attention is directed to the breathing movement, gross body movement, amniotic fluid volume and tone. Findings: Amniotic fluid index 14.8 cm Total biophysical profile is 8 of 8. breathing movement is 2. Gross body movement is 2. tone is 2. Qualitative amniotic fluid volume is 2 Impression: Biophysical profile is 8 of 8.
[2025-06-29 15:43] VITALS: BP 109/51; PULSE 101; RESP 18; TEMP 36.6
--- NOTE | 2025-07-06 12:28 | XR_ITS ---
Examination: Biophysical profile, ultrasound Date and time of exam: July 06, 2025, 1205 hours INDICATIONS: Diagnosis gestational diabetes, diagnosis advanced maternal age Technique: Multiple transabdominal sonographic images of the pelvis abdomen obtained. Attention is directed to the breathing movement, gross body movement, amniotic fluid volume and tone. Findings: Amniotic fluid index 8.8 cm Total biophysical profile is 8 of 8. breathing movement is 2. Gross body movement is 2. tone is 2. Qualitative amniotic fluid volume is 2 Impression: Biophysical profile is 8 of 8.
[2025-07-06 12:50] VITALS: BP 97/54; PULSE 88; RESP 16; TEMP 37.2
--- NOTE | 2025-07-13 14:47 | XR_ITS ---
Examination: Biophysical profile, ultrasound Date and time of exam: July 13, 2025, 1505 hours INDICATIONS: Diagnosis gestational diabetes, diagnosis advanced maternal age Technique: Multiple transabdominal sonographic images of the pelvis abdomen obtained. Attention is directed to the breathing movement, gross body movement, amniotic fluid volume and tone. Findings: Amniotic fluid index 11.8 cm Total biophysical profile is 8 of 8. breathing movement is 2. Gross body movement is 2. tone is 2. Qualitative amniotic fluid volume is 2 Impression: Biophysical profile is 8 of 8.
[2025-07-13 15:24] VITALS: BP 110/62; PULSE 105; RESP 16; TEMP 36.8
--- NOTE | 2025-07-20 09:17 | XR_ITS ---
Examination: Biophysical profile, ultrasound Date and time of exam: 07/20/2025 at 9:44 a.m. Technique: Multiple transabdominal sonographic images of the pelvis abdomen obtained. Attention is directed to the breathing movement, gross body movement, amniotic fluid volume and tone. Findings: The amniotic fluid volume index is 7.9 cm, and the amniotic fluid volume index is at the lower limits of normal for a 37-week gestational age heart rate is 147 bpm Total biophysical profile is 8 of 8. breathing movement is 2. Gross body movement is 2. tone is 2. Qualitative amniotic fluid volume is 2 Impression: Biophysical profile is 8 of 8. 2. The amniotic fluid volume index is at the lower limits of normal for this gestational age
[2025-07-20 10:03] VITALS: BP 114/58; PULSE 99; RESP 16; TEMP 36.7
--- NOTE | 2025-07-27 09:08 | XR_ITS ---
Examination: Biophysical profile, ultrasound Date and time of exam: July 27, 2025, 0909 hours INDICATIONS: Diagnosis gestational diabetes, diagnosis advanced maternal age Technique: Multiple transabdominal sonographic images of the pelvis abdomen obtained. Attention is directed to the breathing movement, gross body movement, amniotic fluid volume and tone. Findings: Amniotic fluid index 12.6 cm Total biophysical profile is 8 of 8. breathing movement is 2. Gross body movement is 2. tone is 2. Qualitative amniotic fluid volume is 2 Impression: Biophysical profile is 8 of 8.
[2025-07-27 09:33] VITALS: BP 113/59; PULSE 103; RESP 16; TEMP 37
== END 2025-07-27 23:59 | disposition home or self-care (01) ==
LOC: S4S1 09:01
PROVIDERS: Referring Provider Advanced Practice Midwife; Visit Provider Advanced Practice Midwife
DX: O24.410 Gestational diabetes mellitus in pregnancy, diet controlled (principal); O09.93 Supervision of high risk pregnancy, unspecified, third trimester; O09.523 Supervision of elderly multigravida, third trimester; Z3A.38 38 weeks gestation of pregnancy
CPT/HCPCS: 59025; 76819

== ENCOUNTER 2025-07-28 13:02 | Outpatient (AMB) | payer MEDICAID, SELFPAY ==
[2025-07-28 13:10] VITALS: BP 121/75; PULSE 97; RESP 18; TEMP 36.6; O2SAT 98; BMI 34.9
--- NOTE | 2025-07-28 13:10 | OBCLNT_ITS ---
Vital Signs 07/28/25 13:10 Height 1.57 m Height Method Stated Weight 86.183 kg Weight Measurement Method Standing Scale BMI 34.9 BP 121/75 Blood Pressure Source Automatic Cuff Blood Pressure Location Right Upper Arm Position Sitting Respiration 18 Pulse 97 Pulse Source Monitor Temp 97.8 F Temp Source Temporal Artery Scan Pulse Oximetry (%) 98 Oxygen Delivery Method Room Air Allergies/Home Meds Allergies & Medications Allergies No Known Allergies Allergy (Verified 07/28/25 13:11) Medication Reconciliation vitamins with calcium no.72-iron 29 mg-folic acid 1 mg tablet ( Plus) 1 tab PO QDAY 90 days #90 tabs 11/25/24 [Rx Confirmed 07/28/25] vitamin-ferrous fumarate 28 mg iron-folic acid 800 mcg tablet ( Vitamins with Minerals) 1 tab PO QDAY 30 days #60 tabs 12/22/24 [Rx Confirmed 07/28/25] aspirin 81 mg tablet,delayed release (Adult Aspirin Regimen) 81 mg PO QDAY #60 tabs 03/29/25 [Rx Confirmed 07/28/25] blood sugar diagnostic (Blood Glucose Test strips) #10 ea 05/18/25 [Rx Confirmed 07/28/25] blood-glucose meter #1 ea 05/18/25 [Rx Confirmed 07/28/25] blood-glucose meter #1 ea 05/18/25 [Rx Confirmed 07/28/25] lancets #100 ea 05/18/25 [Rx Confirmed 07/28/25] blood sugar diagnostic (Blood Glucose Test strips) #50 ea 06/14/25 [Rx Confirmed 07/28/25] lancets #100 ea 06/14/25 [Rx Confirmed 07/28/25] Immunizations Immunizations Flu Vaccine in the Last 12 Months: No Flu Vaccine Exclusion Criteria: No Exclusion Criteria Care OB Visit Log OB Flowsheet Initial Weight: Not Recorded Date -?-?-?-?-?-?-?-?-?-?-?-?- EGA Weight BP Alb Glu CTX Pres Fundal ht FHR Mov Dilation Station Effacement Hx Notes Visit Note 12/22/24 -?-?-?-?-?-?-?-?-?-?-?-?- 7w 3d 78.925 kg 115/76 absent 8 c/o slight nausea. no SAB complaints. compliance with PNV, OB panel drawn, results pending. change PNV to another brand, insurance not covering. schedule NT sacn. NIPT nv, + FHT on sono 01/13/25 -?-?-?-?-?-?-?-?-?-?-?-?- 10w 4d 79.492 kg 121/77 absent unknown 12 145 absent no ob complaints. no sab complaints, m sched 02/03. contin PNV NIPT/carrier screen, . keep [facility] appointment 02/03/25. sab precaution. hydrate. rtc 4 week 03/01/25 -?-?-?-?-?-?-?-?-?-?-?-?- 17w 2d 81.817 kg 117/70 absent unknown 17 145 decreased No SAB complaints. Reports movement. Denies leaking or bleeding. Patient has a follow-up maternal- medicine appointment for March. No SAB complaints. Reports movement. Denies leaking or bleeding. Patient has a follow-up maternal- medicine appointment for March. [facility] 03/01 Keep appointment in March for follow-up MFM. aFP today. Discussed labor and SAB precautions. Increase fluids. Continue prenatals return in 4 weeks OB check 03/29/25 -?-?-?-?-?-?-?-?-?-?--?-?- w 2d 83.971 kg 116/73 absent unknown 21 145 active No SAB complaints. Positive movement. [facility] appointment March 31. Denies leaking, bleeding, contractions. Complains of ligament pain Start low-dose baby aspirin 1 daily. Keep appointment March 31 with [facility]. Discussed labor precautions. Increase fluids. Continue prenatals. Return in 4 weeks OB check. Comfort measures for ligament pain 04/26/25 -?-?-?-?-?-?-?-?-?-?-?-?- w 2d 86.409 kg 106/72 absent unknown 25 140 active Reports good movement. Denies leaking, denies bleeding, denies contractions. Continue low- dose baby aspirin and vitamin. Follow-up maternal- medicine sono is June 30. I gave patient lab slip for third trimester labs. Discussed diet and weight gain. labor precautions. Return in 4 4 weeks OB check 05/13/25 -?-?-?-?-?-?-?-?-?-?-?-?- 27w 5d 85.049 kg 128/68 absent unknown 28 145 active + FM, denies leaking,bleeding,UC. c/o vag irritation and discharge. + whiff. Heavy christianson discharge, vagina red comfort me asure for vaginitis. nuswab plus, Diflucan 150 x3, flagyl 500 bid x7, gynelotrimin x 7. 3 hr gtt. mfm 07/06. discuss diet and weight. keep sched appointment 05/24/25 -?-?-?-?-?-?-?-?-?-?-?-?- 29w 2d 85.332 kg 104/70 absent unknown 29 145 active Fetus active. Sugars at goal 95% of the time. Denies leaking, bleeding, contractions. Patient is compliant with diet and doing well with that. She has a follow-up MFM appointment June 30 [facility] GDM diet. Continue to log sugars. Schedule weekly NST BPP. Kick count at 32 weeks. Continue prenatals. Return in 2 weeks OB check. And keep MFM appointment for June 30 06/14/25 -?-?-?-?-?-?-?-?-?-?-?-?- 32w 2d 85.049 kg 102/66 absent unknown 32 145 active Fetus active. Doing well with glucose monitoring and testing. Denies leaking, bleeding, contractions. And her insurance has approved for weekly NST BPP Refill lancets and test strips. Patient will schedule a weekly NST BPP. Sugars at goal like 95% of the time. Reviewed diet with patient advised to increase walking activity. And we discussed monitoring sugars. Start kick count twice a day. Return in 2 weeks OB check. Patient has a follow-up appointment at [facility] June 30. Return in 2 weeks OB check 07/05/25 -?-?-?-?-?-?-?-?-?-?-?-?- 35w 2d 84.822 kg 101/65 absent cephalic 35 145 active Fetus active. Doing well. No complaints of contractions. No bleeding no leaking. Maternal medicine was last . But report is pending Follow-up on MFM visit. Continue to monitor sugars 4 times a day. Continue GDM diet. Continue weekly NST BPP. Will schedule induction at 39 weeks. Discussed kick count and labor precautions. Return week OB check. GBS nv Follow-up on MFM visit. Con tinue to monitor sugars 4 times a day. Continue GDM diet. Continue weekly NST BPP. Will schedule induction at 39 weeks. Discussed kick count and labor precautions. Return week OB check. GBS nv. IOL 07/31/25 Follow-up on MFM visit. Con tinue to monitor sugars 4 times a day. Continue GDM diet. Continue weekly NST BPP. Will schedule induction at 39 weeks. Discussed kick count and labor precautions. Return week OB check. GBS nv. IOL 07/31/25. flu vaccine 07/14/25 -?-?-?-?-?-?-?-?-?-?-?-?- 36w 4d 86.353 kg 117/74 absent cephalic 35 145 active Patient reports sugars are at goal. Fastings are all below 100. Sugars at goal 95% of the time. She is compliant with weekly NST BPP and diet. She has a follow-up ultrasound coming in the . Denies leaking, bleeding, contractions f/u sono 07/30. f/u sono 07/30.IOL 07/31/25. Continue GDM diet. Walk 40 minutes a day. Continue to log blood sugars 4 times a day. Kick count twice a day. Reviewed danger signs symptoms and ER precautions. And continue weekly NST BPP. Return week OB check 07/23/25 -?-?-?-?-?-?-?-?-?-?-?-?- 37w 6d 85.786 kg 125/84 absent cephalic 37 145 active Sugar logs are at goal 95% of the time. Compliant with checking blood sugars 3 times a day. And weekly NST BPP. Fetus is active per patient. Occasional contraction. Denies leaking or bleeding. Patient scheduled for induction IOL schedule 07/31/25. Discussed kick count twice a day. Continue to monitor blood sugars 3 times a day. And log them. Reviewed GDM diet. Walking reactive. Continue weekly NST BPP.f/u sono for 07/30 at [facility] 07/28/25 -?-?-?-?-?-?-?-?-?-?-?-?- 38w 4d 86.183 kg 121/75 occasional cephalic 38 156 active Sugar logs at goal 95% of the time. Reports good movement. Denies leaking or bleeding or contractions. Patient had reactive NST BPP yesterday. She is scheduled for induction July 31 Discussed labor precautions. Kick count twice a day. Discussed danger signs and symptoms. Continue to log sugars and watch diet and walking reactive and induction August 08, 2025 BRITT Calculator Estimated Delivery Date Method Current WG Current Estimate 08/07/25 LMP (Certain) 38w 4d Other Estimates 08/07/25 Ultrasound #1 38w 4d 08/07/25 Ultrasound #2 38w 4d 08/07/25 Manual 38w 4d final BRITT: 07/13 03/05 Notes Visit Date: 07/14/25 Last Updated by: Veda Quigley CNM GBS+, sono 06/30/25: 34w4, EFW 12% Visit Date: 05/13/25 Last Updated by: Veda Quigley CNM 05/13: 1 hr gtt: 142, ,a1: 5.1, RPR::NR Visit Date: 03/29/25 Last Updated by: Veda Quigley CNM 34 yo . LMP 10/31/24, edc: 08/07/25. O+,abs-, rpr;;nr, rub imm, hbsag- , hiv-,HC-, GC/CT-. AFP/NIPT -, carrier screen- Visit Date: 03/01/25 Last Updated by: Veda Quigley CNM NIPT- Visit Date: 01/13/25 Last Updated by: Veda Quigley CNM 34 yo lmp 10/31/24. EDC 08/07/25. O+,abs-, RPR::NR, rub imm, hbsag-,hiv-, GC/CT-, Office Procedures OBC Clinic LOC & Office Proc's Nursing/Assessment Patient Status: Established Patient OB Clinic Nursing Assessment: Medication Reconciliation, Update PMH in EMR and Vital Signs OB Clinic Coordination of Care: Complex Care and Chronic Disease 1-5, Education Complex Pt/Fam, Consent,records obtained, informed consent, Lab and Imaging ord ers, Results/Orders obtained and Staff clarify orders Special Needs: Heart tones Established Patient Charge Established Patient Point Assignment: 140 Established Patient Point Charge: EP Level 4 (120-155) Assessment & Plan Diagnosis / Problem List (1) Diet controlled gestational diabetes mellitus (GDM) in third trimester: Status: Acute (2) High risk case management patient in third trimester: Status: Acute Plan Patient scheduled for induction July 31. Reports good movement. Discussed labor precautions. Kick count twice a day. Continue to monitor blood sugar and to walk 30 minutes a day. Okay thank to labor and delivery she needs an Additional Plan Follow Up: 1 Week (obc)
== END 2025-07-28 13:29 | disposition home or self-care (01) ==
LOC: HODSOBC 13:02
PROVIDERS: Supervising Provider Advanced Practice Midwife; Visit Provider Advanced Practice Midwife
DX: O09.893 Supervision of other high risk pregnancies, third trimester (principal); O24.410 Gestational diabetes mellitus in pregnancy, diet controlled; O09.523 Supervision of elderly multigravida, third trimester; Z3A.38 38 weeks gestation of pregnancy
CPT/HCPCS: 99214; G0463

== ENCOUNTER 2025-08-02 09:00 | Inpatient (IN) | payer MEDICAID, SELFPAY ==
[2025-08-02] VITALS (30 sets, daily range): BP systolic 98–134; BP diastolic 55–83; PULSE 31–96; RESP 17–20; TEMP 36.9–37.2; O2SAT 97; BMI 34.4
--- NOTE | 2025-08-02 08:14 | PC.NURSE ---
CALLED PT, NO ANSWER, LEFT VOICEMAIL
--- NOTE | 2025-08-02 08:18 | PC.NURSE ---
CALLED PT, PT ANSWERED, ASKED PT TO COME IN FOR IOL, PT STATES WILL BE HERE, ASKED PT TO BE HERE BY 0900, PT STATES WILL GET READY AND WILL COME
[2025-08-02 10:01] LABS: Basophils # (Auto) 0.0 Thou/mm3 (0.0-0.2); Basophils % (Auto) 0 % (0-2.5); Eosinophils # (Auto) 0.0 Thou/mm3 (0.0-0.5); Eosinophils % (Auto) 1 % (0-10); Hematocrit 38.4 % (36.0-46.0); Hemoglobin 13.3 g/dL (12.0-16.0); Immature Granulocytes Auto 0.02 Thou/mm3 (0.00-0.00); Lymphocytes # (Auto) 1.7 Thou/mm3 (1.0-4.8); Lymphocytes % (Auto) 25 % (10-50); Mean Corpuscular HGB Conc 34.6 g/dl (31.0-37.0); Mean Corpuscular Hemoglobin 30.3 pg (25.0-35.0); Mean Corpuscular Volume 88 fL (80-100); Monocytes # (Auto) 0.3 Thou/mm3 (0.0-0.8); Monocytes % (Auto) 4 % (0-12); Neutrophils # (Auto) 4.6 Thou/mm3 (1.8-7.7); Neutrophils % (Auto) 70 % (37-80); Nucleated Red Blood Cell # 0.00 Thou/mm3 (0.00-0.00); Nucleated Red Blood Cell % 0 /100 WBC (0); Platelet Count 235 Thou/mm3 (140-440); RDW Standard Deviation 45.7 fL (36.4-46.3); Red Blood Count 4.39 Miln/mm3 (4.00-5.20); White Blood Count 6.6 Thou/mm3 (3.6-11.0)
--- NOTE | 2025-08-02 10:08 | PD.LDHP ---
Documentation for date of: 08/02/25 OB Labor/Induct. HPI History of Present Illness Chief complaint: Induction of labor for gestational diabetes : 4 Term pregnancies: 3 pregnancies: 0 Living children: 2 History of Vaginal deliveries: 3 History of sections: No History of : No BRITT: 08/07/25 Gestational Age (weeks): 39 Gestational Age (days): 2 History of present illness: Patient is a 35-year-old -0-0-3 with all care uncomplicated with Veda Quigley CNM. Patient is being induced for AMA at 35 years old and diet controlled gestational diabetes. She is 39-2/7 weeks . Group B strep is positive. On the day of admission, patient reported good movement she was reporting some irregular contractions about every 4 minutes no loss of fluids or vaginal bleeding. History of Present Dating criteria: LMP confirmed by 2nd trimester US Adequate Care: Yes Ultrasounds: normal mid trimester US Obstetrical complications: gestational diabetes and other (AMA) Medical complications: none Labs Maternal Blood Type: O Pos Labs: Positive: Rubella Titre and Group Beta Strep (Positive group B strep), Negative: RPR, Hepatitis B, HIV, Chlamydia and Gonorrhea and Unknown: Herpes Type 1, Herpes Type 2 and Covid-19 Past Medical History Surgical History SURGICAL: Negative Section Past Medical History Comments PMH COMMENT: Patient denies any significant medical history. No hypertension or asthma. She has diet-controlled gestational diabetes. Meds Home Medications and Allergies Allergies Allergy/AdvReac Type Severity Reaction Status Date / Time No Known Allergies Allergy Verified 08/02/25 09:31 OB Exam Physical Exam Vital signs: Temp Pulse Resp BP O2 Del Method 99.0 F 83 17 123/80 Room Air 08/02/25 09:26 08/02/25 09:56 08/02/25 09:26 08/02/25 09:56 08/02/25 09:26 Constitutional Constitutional: no acute distress and cooperative Comments: Patient is alert and orient x 3 cooperative and pleasant the father the baby is at bedside Routine Abdominal Exam Abdominal: Present soft Comments: EFW by Zechariah's approximately 7 to 7-1/2 pounds Detailed Labor and Delivery Exam Cervix position: posterior station: -2 Consistency: medium Presentation: Vertex Membranes: intact Baseline heart rate: 140 monitor accelerations: 15x15 monitor decelerations: None termination clerk variability: Moderate (11-25) Contraction frequency (min): Every 4 to 5 minutes Tachysystole: No OB Results Labs 08/02/25 09:30 OB Assessment & Plan Assessment and Plan (1) Diet controlled gestational diabetes mellitus (GDM) in third trimester: Status: Acute (2) Supervision of high risk in third trimester: Status: Acute Assessment and plan: Admit patient. Cytotec induction ,patient does not desire epidural. (3) Mother positive for group B Streptococcus colonization: Status: Acute Assessment and plan: Ampicillin Additional Plan Induction method: per misoprostol protocol Plan: anticipate NVD and GBS prophylaxis tx
[2025-08-02] MEDS: Ampicillin Inj 2,000 MG in SODIUM CHLORIDE 0.9% (POP) 100 ML 200 MG IV (10:24)
[2025-08-02] MEDS: RINGERS LACTATED 1000 ML 1,000 ML 100 ML IV (10:25)
[2025-08-02 11:45] LABS: Syphilis Nonreactive (Nonreactive)
[2025-08-02] MEDS: Ampicillin Inj 1,000 MG in SODIUM CHLORIDE 0.9% (Popper) 50 ML 50 MG IV (14:00)
[2025-08-02] MEDS: fentaNYL CIT INJ 50 mCg/ML AMP 2ML 100 MCG IVP (14:51)
--- NOTE | 2025-08-02 15:52 | PD.LDPN ---
Documentation for date of: 08/02/25 OB Labor Progress Note Pain Control Pain control: tolerating well Pelvic Exam Dilation (cm): 8 Effacement (%): 70 station: -2 Amniotic membrane status: Ruptured Contractions Monitor mode: External Contraction frequency: 1.5-5 Contraction intensity: Moderate Status status: Category ll Assessment and Plan Assessment: induction ongoing Plan OB labor note: continuous present management History of Present Illness HPI Patient is a 35-year-old -0-0-3 with all care uncomplicated with Veda Quigley CNM. Patient is being induced for AMA at 35 years old and diet controlled gestational diabetes. She is 39-2/7 weeks . Group B strep is positive. On the day of admission, patient reported good movement she was reporting some irregular contractions about every 4 minutes no loss of fluids or vaginal bleeding. Patient had Cytotec placed x 1 ampicillin 2 doses. At 1545 she progressed to 8 cm with a bulging bag of water she was AROM clear fluid noted Anticipate
[2025-08-02] MEDS: MINERAL OIL 30 ML UDC TOP (16:04)
[2025-08-02] MEDS: OXYTOCIN in NS 20 units 20 UNIT/1,000 ML BAG 125 UNIT IV (16:07)
[2025-08-02] MEDS: LIDOCAINE HCL 1% 20 ML VIAL INFL (16:14)
--- NOTE | 2025-08-02 16:26 | PD.LDDELS ---
Data ([facility]) Data Hx Section: No Maternal Blood Type: O Pos Rubella Titre: Positive RPR: Non-reactive Labs: Positive: Group Beta Strep and Negative: RPR, Hepatitis B, HIV, Chlamydia and Gonorrhea : 4 Term: 3 : 0 Livin Delivery Data (Soliz) Labor Data Initiation of labor: Induction Induction/Augmentation Agent: Cytotec-PO ROM date: 08/02/25 ROM time: 15:50 Amniotic membrane rupture type: Artificial Amniotic fluid description: Clear Delivery Data EDC: 08/07/25 Date of arrival to unit: 08/02/25 Onset of labor date: 08/02/25 Onset of labor time: 11:00 Complete dilation date: 08/02/25 Complete dilation time: 16:01 [place] delivery date: 08/02/25 delivery time: 16:05 Gestational age (weeks): 39 Gestational age (days): 2 Placenta delivery date: 08/02/25 Placenta delivery time: 16:10 Stage 1 total time: Labor - Stage 1 Duration 5 hours and 1 minutes Delivered by: Surekha [facility] ([facility]) Delivery nurse: marla Stearns nurse: Deb Inspector Experimental Assembly at delivery: No Support person(s) at delivery: fob Delivery Method Delivery method: Normal Vaginal Delivery Presentation: Vertex position: OA Anesthesia Type Anesthesia Type: None Anesthesia type: None Delivery Room Medications Delivery room medications: Lidocaine (local) and Pitocin 20 u IV Placenta Placenta delivery description: Spontaneous Cord blood sent to lab: Yes cord blood collection: Cord Blood Type Episiotomy Episiotomy description: None Lacerations #1: Perineal: 1st degree Perineal repair Sutures used for repair: 3.0 Chromic EBL Estimated blood loss (ml): 100 Umbilical Cord cord description: 3 Vessels, Nuchal Cord and Around Body Additional Procedures The patient is a 35-year-old EDC 08/07/2025 admitted for induction of labor secondary to AMA and diet-controlled gestational diabetes. She had Cytotec placed x 1 at 10:45 in the morning and she was 2 cm dilated. She kicked into labor. She had ampicillin started for positive group B strep. An amniotomy was performed at approximately 1545. The patient was 8 cm dilated. She went on to rapidly progress to complete and pushed through 3 contractions delivering a liveborn female at 1605. Findings: Liveborn female in the GONZ[place]LE[place] presentation with a loose nuchal cord x 1, no meconium. Apgars were 9 and 9. Weight is still pending at the time of dictation but was approximately 6-1/2 pounds. As the baby was vigorous at , she was placed directly on mother's chest and delayed cord clamping performed for 2 to 3 minutes. The cord was then clamped and cut and the infant remained on mother's chest. Cord gases were saved and Cord blood was sent. The placenta was then complete, spontaneous, and grossly normal delivering approximately 5 minutes after the baby delivered. The patient sustained a very small first-degree perineal laceration repaired using 3-0 Chromic and lidocaine in standard fashion. Complications were none. Condition: Both mom and were in stable condition the delivery room. EBL was 100 cc. Complications Complications: None Data (Soliz) Data order: 1 Papillion's gender: Female Identification band number: [id number] 1 minute: 9 5 minutes: 9
[2025-08-02] MEDS: IBUPROFEN TAB 400 MG TABLET 800 MG PO (16:35)
[2025-08-02] MEDS: BENZO/LANO/ALOE (Dermoplast) 60 GM CAN 1 SPRAY TOP (16:35)
[2025-08-02] MEDS: DOCUSATE SOD 100 MG CAPSULE PO (20:44)
[2025-08-03 03:45] VITALS: BP 114/75; PULSE 86; RESP 19; TEMP 37; O2SAT 97
[2025-08-03] MEDS: IBUPROFEN TAB 400 MG TABLET 800 MG PO ×2 (03:59→12:41)
[2025-08-03 06:24] LABS: Basophils # (Auto) 0.0 Thou/mm3 (0.0-0.2); Basophils % (Auto) 1 % (0-2.5); Eosinophils # (Auto) 0.1 Thou/mm3 (0.0-0.5); Eosinophils % (Auto) 1 % (0-10); Hematocrit 32.1 % (36.0-46.0); Hemoglobin 10.7 g/dL (12.0-16.0); Immature Granulocytes Auto 0.04 Thou/mm3 (0.00-0.00); Lymphocytes # (Auto) 2.2 Thou/mm3 (1.0-4.8); Lymphocytes % (Auto) 26 % (10-50); Mean Corpuscular HGB Conc 33.3 g/dl (31.0-37.0); Mean Corpuscular Hemoglobin 29.7 pg (25.0-35.0); Mean Corpuscular Volume 89 fL (80-100); Monocytes # (Auto) 0.4 Thou/mm3 (0.0-0.8); Monocytes % (Auto) 5 % (0-12); Neutrophils # (Auto) 5.6 Thou/mm3 (1.8-7.7); Neutrophils % (Auto) 68 % (37-80); Nucleated Red Blood Cell # 0.00 Thou/mm3 (0.00-0.00); Nucleated Red Blood Cell % 0 /100 WBC (0); Platelet Count 226 Thou/mm3 (140-440); RDW Standard Deviation 46.3 fL (36.4-46.3); Red Blood Count 3.60 Miln/mm3 (4.00-5.20); White Blood Count 8.3 Thou/mm3 (3.6-11.0)
--- NOTE | 2025-08-03 07:35 | PD.LDPPPRG ---
Subjective Subjective Interval history: Delivery type: Patient doing well this morning. No acute complaints. Ambulating, tolerating p.o., and voiding without difficulty. HTN/Pre-E screen negative: No CP, SOB, LEAHY, visual changes, RUQ pain. :yes Lochia: diminishing Bowel: Flatus + / BM + Exam Vital Signs Temp Pulse Resp BP Pulse Ox O2 Del Method 98.6 F 86 19 114/75 97 Room Air 08/03/25 03:45 08/03/25 03:45 08/03/25 03:45 08/03/25 03:45 08/03/25 03:45 08/03/25 03:45 Constitutional Constitutional: no acute distress Routine HEENT Exam Head: Present normocephalic and atraumatic Eye: Present EOMI and PERRL ENT: Present mucous membranes moist Routine Neck Exam Neck: Present supple and trachea midline Routine Respiratory Exam Respiratory: Present chest non-tender, lungs clear, normal breath sounds and no resp distress Routine Cardiovascular Exam Cardiovascular: Present RRR Routine Abdominal Exam Abdominal: Present soft and normoactive bowel sounds Routine Extremities Exam Extremities: Present full ROM Routine Skin Exam Skin: Present intact, dry and warm Routine Neurological Exam Neurological: Present alert, oriented X3 and CN II-XII intact Routine Psychiatric Exam Psychiatric: Present normal affect and normal thought process Objective Labs 08/03/25 05:47 Labs: Laboratory Results - last 24 hr 08/02/25 08/02/25 08/03/25 09:30 10:28 05:47 WBC 6.6 8.3 RBC 4.39 3.60 L Hgb 13.3 10.7 L D Hct 38.4 32.1 L MCV 88 89 MCH 30.3 29.7 MCHC 34.6 33.3 RDW Std Deviation 45.7 46.3 Plt Count 235 226 Neut % (Auto) 70 68 Lymph % (Auto) 25 26 [place] % (Auto) 4 5 Eos % (Auto) 1 1 Baso % (Auto) 0 1 Neut # (Auto) 4.6 5.6 Lymph # (Auto) 1.7 2.2 [place] # (Auto) 0.3 0.4 Eos # (Auto) 0.0 0.1 Baso # (Auto) 0.0 0.0 Immature Gran # (Auto) 0.02 H 0.04 H Absolute Nucleated RBC 0.00 0.00 Immature Gran % 0 1 H Nucleated RBC % 0 0 Syphilis Serology Nonreactive Blood Type O Positive Antibody Screen NEGATIVE Blood Bank Wristband ID Yes Assessment & Plan Problem List (1) Diet controlled gestational diabetes mellitus (GDM) in third trimester: Status: Acute (2) Supervision of high risk in third trimester: Status: Acute (3) Mother positive for group B Streptococcus colonization: Status: Acute (4) Vaginal delivery: Status: Acute Assessment and plan: 1. Continue routine /post-op care 2. Labs reviewed, cbc appropriate 3. Remove dressing/Barrientos 4. Encourage to ambulate, shower 5. Encourage PO intake, breast feeding Time Spent With Patient Time: Total time spent is greater than 50% in coordination of care (as documented) at patient's floor/unit and/or counseling patient:
--- NOTE | 2025-08-03 07:36 | ESDS_ITS ---
DS: Providers Provider Date of admission: 08/02/25 09:00 Primary care physician: Homero Davis MD Admitting Provider: Surekha [facility] MD ([facility]) Attending Provider on Admission: Reymundo Veliz MD Consults: 08/02/25 16:47 Referral Routine Comment: Attending Provider on DC: Reymundo Veliz MD Discharging Provider: Reymundo Veliz MD DS: Diagnosis Discharge Diagnosis (1) Vaginal delivery: Status: Acute (2) Mother positive for group B Streptococcus colonization: Status: Acute (3) Diet controlled gestational diabetes mellitus (GDM) in third trimester: Status: Acute Problem List Completed Was Problem List Reviewed/Reconciled?: Yes Summary/Hosp Course Brief History: Patient is a 35-year-old -0-0-3 with all care uncomplicated with Veda Quigley CNM. Patient is being induced for AMA at 35 years old and diet controlled gestational diabetes. She is 39-2/7 weeks . Group B strep is positive. On the day of admission, patient reported good movement she was reporting some irregular contractions about every 4 minutes no loss of fluids or vaginal bleeding. Patient had Cytotec placed x 1 ampicillin 2 doses. At 1545 she progressed to 8 cm with a bulging bag of water she was AROM clear fluid noted Anticipate Peripartum Data Delivery Method: Normal Vaginal Delivery Episiotomy Description: None Time Spent with Patient Time attestation: Total time spent providing and/or coordinating discharge services: Exam Vital Signs Temp Pulse Resp BP Pulse Ox O2 Del Method 98.6 F 86 19 114/75 97 Room Air 08/03/25 03:45 08/03/25 03:45 08/03/25 03:45 08/03/25 03:45 08/03/25 03:45 08/03/25 03:45 Discharge Plan Plan Patient Disposition: HOME (Self Care) Patient condition on transfer: Stable Prescriptions/Referrals Prescriptions/Med Rec: New docusate sodium [Stool Softener] 100 mg capsule 100 mg PO QDAY 30 Days Qty: 30 0RF ibuprofen 600 mg tablet 600 mg PO Q6H PRN (Reason: fever or pain) 10 Days Qty: 40 0RF Discontinued vit-iron fum-folic ac [ Vitamin with Minerals] 28 mg iron- 800 mcg tablet 1 tab PO QDAY 30 Days Qty: 60 3RF (DME) Blood Glucose Test Strip See Rx Instructions .MEDSUPPLY Qty: 50 3RF Rx Instructions: As directed test 4 times daily (DME) lancets Misc See Rx Instructions .MEDSUPPLY Qty: 100 3RF Rx Instructions: As directed, test 4 x daily Plus 29 mg iron- 1 mg tablet 1 tab PO QDAY 90 Days Qty: 90 3RF aspirin [Adult Aspirin Regimen] 81 mg tablet,delayed release (DR/EC) 81 mg PO QDAY Qty: 60 1RF (DME) lancets Misc See Rx Instructions .MEDSUPPLY Qty: 100 0RF Rx Instructions: As directed (DME) blood-glucose meter Kit See Rx Instructions .MEDSUPPLY Qty: 1 0RF Rx Instructions: As directed (DME) Blood Glucose Test Strip See Rx Instructions .MEDSUPPLY Qty: 10 0RF Rx Instructions: As directed, test 4 x daily (DME) blood-glucose meter Kit See Rx Instructions .MEDSUPPLY Qty: 1 0RF Rx Instructions: As directed. test 4 x daily Referrals: Veda Quigley CNM [Certified Nurse Home Companion, CLIENT ACCOUNT REPRESENTATIVE] Homero Davis MD [Primary Care Provider, Family Practice] Patient/Caregiver Discharge Instructions Meds to Beds: Yes Education Materials: After a Vaginal , After Delivery [place] Concerns, Breast Care After , Blood Glucose Screening During ..., : Caring for Yourself Print Language: Thai Stand Alone Forms: [facility] Award Info., Patient Portal Info Letter Discharge Order Discharge Orders: Discharge (Routine); Ordered 08/03/25 Ordered By: Reymundo Veliz Planned Discharge Date 08/03/25
[2025-08-03 07:40] VITALS: BP 122/74; PULSE 83; RESP 18; TEMP 36.7; O2SAT 97
[2025-08-03] MEDS: DOCUSATE SOD 100 MG CAPSULE PO (08:19)
[2025-08-03] MEDS: PRENATAL VITAMIN/FE FUM/FA TABLET 1 TAB PO (08:19)
[2025-08-03 11:15] VITALS: BP 120/75; PULSE 72; RESP 17; TEMP 37.1; O2SAT 97
[2025-08-03 15:35] VITALS: BP 107/74; PULSE 83; RESP 18; TEMP 36.9; O2SAT 98
== END 2025-08-03 17:17 | disposition home or self-care (01) | DRG 560 ==
LOC: S4SX 13:38 → S4NX 18:25
PROVIDERS: Admitting Provider Obstetrics & Gynecology; PCP Family Medicine; Visit Provider Obstetrics & Gynecology
DX: O24.420 Gestational diabetes mellitus in childbirth, diet controlled (principal); O99.824 Streptococcus B carrier state complicating childbirth; Z37.0 Single live birth; Z3A.39 39 weeks gestation of pregnancy; O70.0 First degree perineal laceration during delivery; O69.81X0 Labor and delivery complicated by cord around neck, without compression, not applicable or unspecified
CPT/HCPCS: 36415; 85025; 86780; 86850; 86900; 86901; J0290; J2590; J3010; J3490; J7050; J7120; A9270